=== PATIENT | female | born 1955 | race American Indian/Alaskan Native ===

== ENCOUNTER 2016-09-07 14:59 | Observation (INO) | payer SELFPAY ==
[2016-09-07 15:00] VITALS: BMI 26.6
[2016-09-07 15:11] VITALS: BP 136/75; PULSE 70; RESP 18; TEMP 98.2; O2SAT 98
--- NOTE | 2016-09-07 15:49 | ED PDOC ---
HPI: Abdomen Time Seen by Provider: 09/07/16 15:28 Chief Complaint (Nursing): Abdominal Pain Chief Complaint (Provider): abdominal pain History Per: Patient History/Exam Limitations: no limitations Onset/Duration Of Symptoms: Hrs (overnight ) Outside of [place] travel?: No Current Symptoms Are (Timing): Still Present Location Of Pain/Discomfort: Diffuse Associated Symptoms: Nausea, Vomiting. denies: Fever, Chills, Diarrhea, Urinary Symptoms Additional Complaint(s): Johanny Yang is a 60 year old female, with no previous medical history, who presents to the ED with complaints on constant abdominal pain which started overnight. Pt reports associated symptoms of nausea with multiple episodes of vomiting and the inability to pass gas. Pt denies any fevers, chills, urinary symptoms or diarrhea. Pt reports to experiencing intermittent episodes of abdominal pain for the past few months which she ignored. Pt states to taking estrogen for postmenstrual issues. PMD: none provided Abnormal Vaginal Bleeding: No Past Medical History Reviewed: Historical Data, Nursing Documentation, Vital Signs Vital Signs: Last Vital Signs Temp 98.2 F 09/07/16 15:08 Pulse 70 09/07/16 15:08 Resp 18 09/07/16 15:08 BP 136/75 09/07/16 15:08 Pulse Ox 98 09/08/16 11:08 - Medical History PMH: Denies: HIV, Chronic Kidney Disease - Family History Family History: States: Unknown Family Hx, CAD - Immunization History Hx Tetanus Toxoid Vaccination: (UTD) - Home Medications Home Medications: Ambulatory Orders Medication Instructions Recorded Dicyclomine [Bentyl] 20 mg PO Q6 PRN #12 tab 09/07/16 Famotidine [Pepcid] 40 mg PO DAILY #10 tab 09/07/16 Ondansetron [Zofran] 4 mg PO Q8H #8 tab 09/07/16 - Allergies Allergies/Adverse Reactions: Allergies Allergy/AdvReac Type Severity Reaction Status Date / Time morphine AdvReac ITCHING Verified 09/07/16 15:08 Review of Systems ROS Statement: Except As Marked, All Systems Reviewed And Found Negative Constitutional: Negative for: Fever, Chills Gastrointestinal: Positive for: Nausea, Vomiting, Abdominal Pain. Negative for : Diarrhea Physical Exam - Reviewed Nursing Documentation Reviewed: Yes Vital Signs Reviewed: Yes - Physical Exam Appears: Positive for: Non-toxic, In Acute Distress (moderate painful) Head Exam: Positive for: ATRAUMATIC, NORMAL INSPECTION, NORMOCEPHALIC Skin: Positive for: Normal Color, Warm, DRY Eye Exam: Positive for: EOMI, Normal appearance, PERRL ENT: Positive for: Normal ENT Inspection Neck: Positive for: Normal, Painless ROM Cardiovascular/Chest: Positive for: Regular Rate, Rhythm Respiratory: Positive for: CNT, Normal Breath Sounds Pulses-Dorsalis Pedis (L): 2+ Pulses-Dorsalis Pedis (R): 2+ Gastrointestinal/Abdominal: Positive for: Bowel Sounds, Soft, Tenderness, Hernia (small in the umbillical area that is reducible- she notes been there for several years after hysterecomty surgery ) Back: Positive for: Normal Inspection. Negative for: L CVA Tenderness, R CVA Tenderness Extremity: Positive for: Normal ROM, Capillary Refill (normal ). Negative for: Tenderness Neurologic/Psych: Positive for: Alert, Oriented, Gait (normal ). Negative for: Motor/Sensory Deficits - Laboratory Results Result Diagrams: 09/07/16 16:18 09/07/16 16:18 - ECG ECG: Positive for: Interpreted By Me, Viewed By Me ECG Rhythm: Positive for: Normal QRS, Normal ST Segment, Sinus Bradycardia (53) . Negative for: ST/T Changes O2 Sat by Pulse Oximetry: 98 (RA) Pulse Ox Interpretation: Normal - Radiology X-Ray: Read By Radiologist (No active pulmonary disease.) X-Ray Interpretation: No Acute Disease Medical Decision Making Medical Decision Making: Initial Impression: Abdominal pain R/o intra abdominal pathology, appendicitis, obstruction, diverticulitis Initial Plan: * CT abd Pelvi w/ PO & IV contrast * EKG * amylase * labs * lact acid * lipase * troponin I * CXR * IV NS 500 ml at 1,000 ml/hr * IV NS 1,000 ml at 500 ml/hr * pepcid * toradol * zofran * urinalysis * reevaluation Scribe Attestation: Documented by Nancy Silva, acting as a scribe for Manolo Perez PA-C. Provider Scribe Attestation: All medical record entries made by the Scribe were at my direction and personally dictated by me. I have reviewed the chart and agree that the record accurately reflects my personal performance of the history, physical exam, medical decision making, and the department course for this patient. I have also personally directed, reviewed, and agree with the discharge instructions and disposition. EXAM: CT Abdomen and Pelvis With Intravenous Contrast. CLINICAL HISTORY:60 years old, female; Pain; Abdominal pain; Generalized Coronal and sagittal reformatted images were created and reviewed. CONTRAST: 90 mL of administered intravenously. EXAM DATE/TIME: 09/07/2016 3:52 PM COMPARISON: There are no prior studies for comparison. FINDINGS: Lower thorax: Heart size is normal. There is a small hiatal hernia. There is minimal atelectasis and scarring at the lung bases ABDOMEN: Liver: There is fatty infiltration of the liver. Gallbladder and bile ducts: unremarkable Pancreas: unremarkable Spleen: unremarkable Adrenals: unremarkable Kidneys and ureters: There is a left renal cyst. There is a low attenuation right renal lesion too small to characterize.Kidneys and ureters are otherwise unremarkable. Stomach and bowel: Stomach is incompletely distended. Rotation is normal. There are mildly dilated loops of small bowel in the left upper quadrant. Perihilar distended air-filled loops in the pelvis. There is no obstruction. Terminal ileum is unremarkable.Appendix is unremarkable. Colon is incompletely distended which limits evaluation. There is minimal diverticulosis Appendix: See stomach and bowel PELVIS: Bladder: unremarkable Reproductive: Uterus is absent. There are no adnexal masses. ABDOMEN and PELVIS: Intraperitoneal space: There is no significant fluid.There is no free air. Bones/joints: There are no acute osseous abnormalities Soft tissues: There is a fat-containing right paraumbilical ventral hernia. Vasculature: Vascular structures are unremarkable. Lymph nodes: There is no pathologic adenopathy. IMPRESSION: No acute solid visceral abnormality; no bowel obstruction; no CT findings of appendicitis or diverticulitis; hysterectomy Additional findings as described above. Thank you for allowing us to participate in the care of your patient. Dictated and Authenticated by: Faith Goodwin MD 09/07/2016 7:58 PM Eastern Time ([place] & [place]) CT as above. Labs reviewed with no acute finding. she has no further pain or nausea and feels better she tolerated PO no abdominal tenderness given normal labs, benign abdomen and no acute CT finding will discharge with GI medications return and follow up information discussed at length she will follow up with pMD without fail. Disposition - Clinical Impression Clinical Impression: Abdominal pain, Vomiting alone - Patient ED Disposition Is Patient to be Admitted: No Counseled Patient/Family Regarding: Studies Performed, Diagnosis, Need For Followup, Rx Given - Disposition Disposition: Routine/Home Disposition Time: 20:28 Condition: IMPROVED
[2016-09-07] MEDS ORDERED: Sodium Chloride 0.9% 500 ML IV STA (15:53)
[2016-09-07] MEDS ORDERED: Iohexol 240 (50 ml) ONE (16:11)
[2016-09-07] MEDS ORDERED: Iohexol 240 (50 ml) PO ONE (16:15)
[2016-09-07] MEDS ORDERED: Sodium Chloride 0.9% 1,000 ML IV STA (16:16)
[2016-09-07 16:33] LABS: BASO % 0.5 % (0.0-2.0); EOS # 0.1 K/uL (0.0-0.7); EOS % 1.4 % (0.0-4.0); HEMATOCRIT 38.4 % (34.0-47.0); LYMPH # 1.4 K/uL (1.0-4.3); MEAN CELL VOLUME 85.2 fl (81.0-99.0); MEAN CORPUSCULAR HEMOGLOBIN 27.7 pg (27.0-31.0); MEAN CORPUSCULAR HGB CONC 32.6 g/dL (33.0-37.0); MEAN PLATELET VOLUME 9.6 fl (7.2-11.7); MONO # 0.3 K/uL (0.0-0.8); MONO % 7.2 % (0.0-10.0); NEUT # 2.6 K/uL (1.8-7.0); NEUT % 58.9 % (50.0-75.0); RED CELL DISTRIBUTION WIDTH 14.6 % (11.5-14.5); URINE BACTERIA RARE (<OCC); URINE BILIRUBIN NEGATIVE (NEGATIVE); URINE BLOOD NEGATIVE (NEGATIVE); URINE COLOR YELLOW (YELLOW); URINE GLUCOSE (UA) NEG (Normal); URINE KETONE NEGATIVE (NEGATIVE); URINE LEUKOCYTE ESTERASE SMALL Leu/uL (Negative); URINE PROTEIN NEGATIVE (NEGATIVE); URINE UROBILINOGEN 0.2-1.0 mg/dL (0.2-1.0); WBC URINE < 1 /hpf (0-5); WHITE BLOOD COUNT 4.5 K/uL (4.8-10.8)
[2016-09-07 16:36] LABS: ALKALINE PHOSPHATASE 79 U/L (38-126); ALT/SGPT 27 U/L (9-52); AMYLASE 92 U/L (30-110); AST/SGOT 27 U/L (14-36); BILIRUBIN,TOTAL 0.3 mg/dl (0.2-1.3); BLOOD UREA NITROGEN 13 mg/dl (7-17); CALCIUM 9.1 mg/dL (8.4-10.2); CARBON DIOXIDE 28 mmol/L (22-30); CHLORIDE 106 mmol/L (98-107); GFR AFRICAN-AMERICAN > 60; GLUCOSE,RANDOM 108 mg/dL (65-105); LIPASE 112 U/L (23-300); SODIUM 140 mmol/l (132-148); TOTAL PROTEIN 7.3 G/DL (6.3-8.2)
--- NOTE | 2016-09-07 17:12 | RAD ---
HISTORY: Abdominal pain COMPARISON: 04/12/2016 TECHNIQUE: Chest PA and lateral FINDINGS: LUNGS: The lungs are well inflated and clear. PLEURA: No significant pleural effusion identified. No pneumothorax apparent. CARDIOVASCULAR: Normal. OSSEOUS STRUCTURES: No significant abnormalities. VISUALIZED UPPER ABDOMEN: Normal. OTHER FINDINGS: None. IMPRESSION: No active pulmonary disease.
[2016-09-07] MEDS ORDERED: Sodium Chloride 0.9% 50 ML IV ONE (19:08)
[2016-09-07] MEDS ORDERED: Iohexol 300 100 ML IJ ONE (19:08)
--- NOTE | 2016-09-07 19:58 | CT ---
EXAM: CT Abdomen and Pelvis With Intravenous Contrast. CLINICAL HISTORY: 60 years old, female; Pain; Abdominal pain; Generalized TECHNIQUE: Axial computed tomography images of the abdomen and pelvis with intravenous contrast. This CT exam was performed using one or more of the following dose reduction techniques: automated exposure control, adjustment of the mA and/or kV according to patient size, and/or use of iterative reconstruction technique. Coronal and sagittal reformatted images were created and reviewed. CONTRAST: 90 mL of [id number] administered intravenously. EXAM DATE/TIME: 09/07/2016 3:52 PM COMPARISON: There are no prior studies for comparison. FINDINGS: Lower thorax: Heart size is normal. There is a small hiatal hernia. There is minimal atelectasis and scarring at the lung bases ABDOMEN: Liver: There is fatty infiltration of the liver. Gallbladder and bile ducts: unremarkable Pancreas: unremarkable Spleen: unremarkable Adrenals: unremarkable Kidneys and ureters: There is a left renal cyst. There is a low attenuation right renal lesion too small to characterize.Kidneys and ureters are otherwise unremarkable. Stomach and bowel: Stomach is incompletely distended. Rotation is normal. There are mildly dilated loops of small bowel in the left upper quadrant. Perihilar distended air-filled loops in the pelvis. There is no obstruction. Terminal ileum is unremarkable.Appendix is unremarkable. Colon is incompletely distended which limits evaluation. There is minimal diverticulosis Appendix: See stomach and bowel PELVIS: Bladder: unremarkable Reproductive: Uterus is absent. There are no adnexal masses. ABDOMEN and PELVIS: Intraperitoneal space: There is no significant fluid.There is no free air. Bones/joints: There are no acute osseous abnormalities Soft tissues: There is a fat-containing right paraumbilical ventral hernia. Vasculature: Vascular structures are unremarkable. Lymph nodes: There is no pathologic adenopathy. IMPRESSION: No acute solid visceral abnormality; no bowel obstruction; no CT findings of appendicitis or diverticulitis; hysterectomy Additional findings as described above.
--- NOTE | 2016-09-08 08:00 | CARD ---
APPROVED REPORT EKG Measurement Heart [id number] <Conclusion> Sinus bradycardia Otherwise normal ECG
== END 2016-09-07 20:23 | disposition home or self-care (01) ==
LOC: H.ER 14:59 → H.EROBSV 15:55
PROVIDERS: ADMIT Emergency Medicine; ATTEND Emergency Medicine
DX: R10.84 Generalized abdominal pain (principal); R11.11 Vomiting without nausea; Z88.5 Allergy status to narcotic agent
CPT/HCPCS: 36415; 71020; 74177; 80053; 81003; 82150; 83605; 83690; 84484; 85025; 93005; 96374; 96375; 99283; G0378; J1885; J2405; J7040; Q9966; Q9967

== ENCOUNTER 2017-01-24 11:59 | Observation (INO) | payer OTHER ==
[2017-01-24 12:08] VITALS: BMI 25.8
[2017-01-24] MEDS ORDERED: Sodium Chloride 0.9% 500 ML IV STA (12:33)
--- NOTE | 2017-01-24 12:38 | ED PDOC ---
HPI: Chest Pain Time Seen by Provider: 01/24/17 12:21 Chief Complaint (Nursing): Chest Pain Chief Complaint (Provider): Chest pain History Per: Patient History/Exam Limitations: no limitations Onset/Duration Of Symptoms: Days (Today) Current Symptoms Are (Timing): Still Present Additional Complaint(s): Pt. woke up today and had chest pressure on the right. Dyspnea along with it. [place] something was sitting on her chest. No numbness, tingles, weakness, headaches, calf pain, fever. No cough. No back pain. Same in October and admitted. Past Medical History Reviewed: Nursing Documentation, Vital Signs Vital Signs: Last Vital Signs Temp 97.8 F 01/24/17 12:04 Pulse 68 01/24/17 12:35 Resp 18 01/24/17 12:04 BP 108/55 L 01/24/17 12:35 Pulse Ox 98 01/24/17 14:38 - Medical History PMH: No Chronic Diseases Denies: HIV, Chronic Kidney Disease - Surgical History Other surgeries: hysterectomy - Family History Family History: States: Unknown Family Hx, CAD - Social History Current smoker - smoking cessation education provided: No Alcohol: None Drugs: Denies - Immunization History Hx Tetanus Toxoid Vaccination: (UTD) - Home Medications Home Medications: Ambulatory Orders Medication Instructions Recorded Aspirin [Aspirin Chewable] 81 mg PO DAILY #30 10/19/16 Atenolol [Tenormin] 25 mg PO DAILY #30 tab 10/19/16 Atorvastatin [Lipitor] 20 mg PO HS #30 tab 10/19/16 - Allergies Allergies/Adverse Reactions: Allergies Allergy/AdvReac Type Severity Reaction Status Date / Time morphine AdvReac ITCHING Verified 01/24/17 12:39 Review of Systems ROS Statement: Except As Marked, All Systems Reviewed And Found Negative Cardiovascular: Positive for: Chest Pain Respiratory: Positive for: Shortness of Breath Physical Exam - Reviewed Nursing Documentation Reviewed: Yes Vital Signs Reviewed: Yes - Physical Exam Appears: Positive for: Non-toxic, No Acute Distress Head Exam: Positive for: ATRAUMATIC, NORMAL INSPECTION, NORMOCEPHALIC Skin: Positive for: Normal Color, Warm, DRY Eye Exam: Positive for: EOMI, Normal appearance, PERRL ENT: Positive for: Normal ENT Inspection Neck: Positive for: Normal, Painless ROM Cardiovascular/Chest: Positive for: Regular Rate, Rhythm. Negative for: Chest Non Tender (R side), Edema Respiratory: Positive for: CNT, Normal Breath Sounds Gastrointestinal/Abdominal: Positive for: Normal Exam, Bowel Sounds, Soft. Negative for: Tenderness Back: Positive for: Normal Inspection. Negative for: L CVA Tenderness, R CVA Tenderness Extremity: Positive for: Normal ROM. Negative for: Tenderness, Pedal Edema Neurologic/Psych: Positive for: Alert, Oriented - Laboratory Results Result Diagrams: 01/24/17 13:41 01/24/17 13:41 Interpretation Of Abn Labs: no acute - ECG ECG: Positive for: Interpreted By Me, Viewed By Me ECG Rhythm: Positive for: Normal QRS, Normal ST Segment, Sinus Rhythm O2 Sat by Pulse Oximetry: 98 Pulse Ox Interpretation: Normal - Radiology X-Ray: Interpreted by Me, Viewed By Me X-Ray Interpretation: No Acute Disease - Progress ED Course And Treament: 1435: Pt. had pain so toradol given. Pt. then got itchy so benadryl given. 1532: Spoke with Dr. Marie. Will admit tele obs. Chest pain free. Took 2 ASA at home today. Disposition - Clinical Impression Clinical Impression: Chest pain - Patient ED Disposition Is Patient to be Admitted: Yes Counseled Patient/Family Regarding: Studies Performed, Diagnosis - Disposition Disposition Time: 15:00 Condition: FAIR - POA Present On Arrival: None
[2017-01-24 13:58] LABS: BASO % 0.5 % (0.0-2.0); EOS % 1.1 % (0.0-4.0); HEMOGLOBIN 13.4 g/dL (12.0-16.0); LYMPH # 1.1 K/uL (1.0-4.3); MEAN CELL VOLUME 85.3 fl (81.0-99.0); MEAN CORPUSCULAR HEMOGLOBIN 27.6 pg (27.0-31.0); MEAN CORPUSCULAR HGB CONC 32.4 g/dL (33.0-37.0); MEAN PLATELET VOLUME 8.9 fl (7.2-11.7); MONO # 0.3 K/uL (0.0-0.8); MONO % 7.2 % (0.0-10.0); NEUT # 2.8 K/uL (1.8-7.0); NEUT % 65.2 % (50.0-75.0); RBC 4.84 Mil/uL (3.80-5.20); WHITE BLOOD COUNT 4.2 K/uL (4.8-10.8)
[2017-01-24 14:09] LABS: INR 1.2 (0.9-1.2); PARTIAL THROMBOPLASTIN TIME 33.2 Seconds (25.6-37.1); PROTHROMBIN TIME 12.2 Seconds (9.8-13.1)
[2017-01-24] MEDS ORDERED: DiphenhydrAMINE 50 mg/ml Inj IV STA (14:35)
[2017-01-24] MEDS ORDERED: DiphenhydrAMINE 50 mg/ml Inj ONE (14:37)
[2017-01-24 14:59] LABS: BLOOD UREA NITROGEN 19 mg/dl (7-17); GFR AFRICAN-AMERICAN > 60; GFR NON-AFRICAN AMERICAN > 60
[2017-01-24 15:00] LABS: ALBUMIN 3.9 g/dL (3.5-5.0); ALT/SGPT 20 U/L (9-52); AST/SGOT 34 U/L (14-36); B-TYPE NATRIURETIC PEPTIDE 85.5 pg/ml (0-900); CALCIUM 9.2 mg/dL (8.4-10.2)
--- NOTE | 2017-01-24 16:07 | RAD ---
HISTORY: dyspnea COMPARISON: 10/18/2016. FINDINGS: LUNGS: No active pulmonary disease. PLEURA: No significant pleural effusion identified, no pneumothorax apparent. CARDIOVASCULAR: Normal. OSSEOUS STRUCTURES: No significant abnormalities. VISUALIZED UPPER ABDOMEN: Normal. OTHER FINDINGS: None. IMPRESSION: No active disease. No acute/significant interval changes.
--- NOTE | 2017-01-24 17:52 | CP.PCM.HP ---
History of Present Illness - History of Present Illness History of Present Illness: 60 yo female with no significant PMH claimed she started having sharp right sided upper chest pain lasting for about 5 minutes since 8am. The pain was non- radiating and came on and off at least 3 times until she arrived in the ER. The patient was noted to have multiple visits in the ER since 2 yrs ago because of the same complaint. Work ups were all negative for ischemic events. Present on Admission - Present on Admission Any Indicators Present on Admission: No History of DVT/PE: No History of Uncontrolled Diabetes: No Urinary Catheter: No Decubitus Ulcer Present: No Review of Systems - Review of Systems All systems: reviewed and no additional remarkable complaints except (aside from those mentioned above, 12 point system review were negative by me) Past Patient History - Infectious Disease Hx of Infectious Diseases: None - Tetanus Immunizations Tetanus Immunization: Unknown - Past Medical History & Family History Past Medical History?: Yes - Past Social History Smoking Status: Never Smoked Alcohol: None Drugs: Denies - CARDIAC Hx Cardiac Disorders: Yes - PULMONARY Hx Respiratory Disorders: No - NEUROLOGICAL Hx Neurological Disorder: No - HEENT Hx HEENT Problems: No - RENAL Hx Chronic Kidney Disease: No - ENDOCRINE/METABOLIC Hx Endocrine Disorders: No - HEMATOLOGICAL/ONCOLOGICAL Hx Blood Disorders: No - INTEGUMENTARY Hx Dermatological Problems: No - MUSCULOSKELETAL/RHEUMATOLOGICAL Hx Musculoskeletal Disorders: No - GASTROINTESTINAL Hx Gastrointestinal Disorders: No - GENITOURINARY/GYNECOLOGICAL Hx Genitourinary Disorders: No - PSYCHIATRIC Hx Psychophysiologic Disorder: No - SURGICAL HISTORY Hx Surgeries: Yes Hx Hysterectomy: Yes (secondary to uterine prolapse) - ANESTHESIA Hx Anesthesia: Yes Hx Anesthesia Reactions: No Hx Malignant Hyperthermia: No Meds Allergies/Adverse Reactions: Allergies Allergy/AdvReac Type Severity Reaction Status Date / Time ketorolac [From Toradol] AdvReac ITCHING Verified 01/24/17 16:36 morphine AdvReac ITCHING Verified 01/24/17 12:39 Physical Exam - Constitutional Appears: No Acute Distress - Head Exam Head Exam: ATRAUMATIC - Eye Exam Eye Exam: absent: Scleral icterus - ENT Exam ENT Exam: Mucous Membranes Moist - Neck Exam Neck exam: Negative for: Meningismus - Respiratory Exam Respiratory Exam: Chest Wall Tenderness (tenderness on palpation on right chest ). absent: Rhonchi, Wheezes, Respiratory Distress - Cardiovascular Exam Cardiovascular Exam: REGULAR RHYTHM, +S1, +S2 - GI/Abdominal Exam GI & Abdominal Exam: Soft. absent: Tenderness - Rectal Exam Rectal Exam: Deferred - Extremities Exam Extremities exam: Negative for: pedal edema - Back Exam Back exam: absent: tenderness - Neurological Exam Neurological exam: Alert, Oriented x3 - Psychiatric Exam Psychiatric exam: Normal Affect - Skin Skin Exam: Dry, Intact Results - Vital Signs Recent Vital Signs: Last Vital Signs Temp 98.1 F 01/24/17 17:24 Pulse 54 L 01/24/17 17:24 Resp 20 01/24/17 17:24 BP 118/69 01/24/17 17:24 Pulse Ox 98 01/24/17 17:24 - Labs Result Diagrams: 01/24/17 13:41 01/24/17 13:41 Assessment & Plan (1) Chest pain Status: Acute Comment: place on observation in telemetry. serial Troponin and EKG. NTG SL prn for chest pain. Morphine 2mg IV q 4hrs prn for chest pain not relieved with NTG
[2017-01-24 23:51] VITALS: RESP 18
[2017-01-25 06:37] LABS: HDL CHOLESTEROL 82 MG/DL (30-70)
[2017-01-25 06:48] LABS: LDL CHOLESTEROL 37 mg/dL (0-129)
[2017-01-25 08:07] VITALS: BP 110/68; TEMP 98.1; O2SAT 100
--- NOTE | 2017-01-25 08:36 | CP.PCM.DIS ---
Provider - Provider Date of Admission: 01/24/17 15:31 Attending physician: Len Marie MD Time Spent in preparation of Discharge (in minutes): 25 Diagnosis - Discharge Diagnosis (1) Atypical chest pain Status: Acute Hospital Course - Lab Results Lab Results: Most Recent Lab Values WBC 4.2 K/uL (4.8-10.8) L 01/24/17 13:41 RBC 4.84 Mil/uL (3.80-5.20) 01/24/17 13:41 Hgb 13.4 g/dL (12.0-16.0) 01/24/17 13:41 Hct 41.3 % (34.0-47.0) 01/24/17 13:41 MCV 85.3 fl (81.0-99.0) 01/24/17 13:41 MCH 27.6 pg (27.0-31.0) 01/24/17 13:41 MCHC 32.4 g/dL (33.0-37.0) L 01/24/17 13:41 RDW 15.0 % (11.5-14.5) H 01/24/17 13:41 Plt Count 141 K/uL (130-400) 01/24/17 13:41 MPV 8.9 fl (7.2-11.7) 01/24/17 13:41 Neut % (Auto) 65.2 % (50.0-75.0) 01/24/17 13:41 Lymph % (Auto) 26.0 % (20.0-40.0) 01/24/17 13:41 [place] % (Auto) 7.2 % (0.0-10.0) 01/24/17 13:41 Eos % (Auto) 1.1 % (0.0-4.0) 01/24/17 13:41 Baso % (Auto) 0.5 % (0.0-2.0) 01/24/17 13:41 Neut # 2.8 K/uL (1.8-7.0) 01/24/17 13:41 Lymph # 1.1 K/uL (1.0-4.3) 01/24/17 13:41 [place] # 0.3 K/uL (0.0-0.8) 01/24/17 13:41 Eos # 0.0 K/uL (0.0-0.7) 01/24/17 13:41 Baso # 0.0 K/uL (0.0-0.2) 01/24/17 13:41 PT 12.2 Seconds (9.8-13.1) 01/24/17 13:41 INR 1.2 (0.9-1.2) 01/24/17 13:41 APTT 33.2 Seconds (25.6-37.1) 01/24/17 13:41 Sodium 141 mmol/l (132-148) 01/24/17 13:41 Potassium 4.9 MMOL/L (3.6-5.0) 01/24/17 13:41 Chloride 109 mmol/L (98-107) H 01/24/17 13:41 Carbon Dioxide 25 mmol/L (22-30) 01/24/17 13:41 Anion Gap 12 (10-20) 01/24/17 13:41 BUN 19 mg/dl (7-17) H 01/24/17 13:41 Creatinine 0.7 mg/dL (0.7-1.2) 01/24/17 13:41 Est GFR ( Amer) > 60 01/24/17 13:41 Est GFR (Non-Af Amer) > 60 01/24/17 13:41 Random Glucose 88 mg/dL (65-105) 01/24/17 13:41 Calcium 9.2 mg/dL (8.4-10.2) 01/24/17 13:41 Total Bilirubin 0.8 mg/dl (0.2-1.3) 01/24/17 13:41 AST 34 U/L (14-36) 01/24/17 13:41 ALT 20 U/L (9-52) 01/24/17 13:41 Alkaline Phosphatase 84 U/L (38-126) 01/24/17 13:41 Troponin I < 0.0120 ng/mL (0.00-0.120) 01/25/17 05:20 NT-Pro-B Natriuret Pep 85.5 pg/ml (0-900) 01/24/17 13:41 Total Protein 7.9 G/DL (6.3-8.2) 01/24/17 13:41 Albumin 3.9 g/dL (3.5-5.0) 01/24/17 13:41 Globulin 4.0 gm/dL (2.2-3.9) H 01/24/17 13:41 Albumin/Globulin Ratio 1.0 (1.0-2.1) 01/24/17 13:41 Triglycerides 32 mg/DL (0-149) 01/25/17 05:20 Cholesterol 151 mg/dL (0-199) 01/25/17 05:20 LDL Cholesterol Direct 37 mg/dL (0-129) 01/25/17 05:20 HDL Cholesterol 82 MG/DL (30-70) H 01/25/17 05:20 - Hospital Course Hospital Course: 61 y/o lady, no significant PMH , came in bec of chest pain. Pain reproducible. he work involves heavy lifting. Denies any other symptoms, no SOB, no cough. She was observed in Telemetry. Started on ASA, NTG. EKG done : no significant ST T change. Troponin x 3 negative. Her Chest pain resolved. No abnormal rhythm on Telemetry. 1. Chest Pain, atypical likely Musculoskeletal Pain, ACS ruled out - appt [facility] clinic for further cardiac work up as outpt. Discharge Exam - Head Exam Head Exam: ATRAUMATIC, NORMAL INSPECTION, NORMOCEPHALIC - Eye Exam Eye Exam: EOMI, Normal appearance Pupil Exam: NORMAL ACCOMODATION - ENT Exam ENT Exam: Mucous Membranes Moist, Normal External Ear Exam - Neck Exam Neck exam: Full Rom - Respiratory Exam Respiratory Exam: NORMAL BREATHING PATTERN. absent: Respiratory Distress - Cardiovascular Exam Cardiovascular Exam: REGULAR RHYTHM, +S1, +S2 - GI/Abdominal Exam GI & Abdominal Exam: Normal Bowel Sounds, Soft. absent: Tenderness - Extremities Exam Extremities exam: full ROM, normal capillary refill, pedal pulses present - Back Exam Back exam: FULL ROM. absent: CVA tenderness (L), CVA tenderness (R) - Neurological Exam Neurological exam: Alert, CN II-XII Intact, Normal Gait, Oriented x3, Reflexes Normal - Psychiatric Exam Psychiatric exam: Normal Affect, Normal Mood - Skin Skin Exam: Dry, Normal Color, Warm Discharge Plan - Discharge Medications Prescriptions: Aspirin [Adult Low Dose Aspirin EC] 81 mg PO DAILY #1 tablet. - Follow Up Plan Condition: GOOD Disposition: HOME/ ROUTINE Instructions: Chest Pain (DC) Additional Instructions: Please follow up with supplies packer Dr. [facility]- 2 weeks for further work up. Telephone number [phone]. If you experiences chest pain not relived by rest please go to the nearest emergency room
[2017-01-25 09:16] VITALS: PULSE 51
--- NOTE | 2017-01-26 07:48 | CARD ---
APPROVED REPORT EKG Measurement Heart [id number] SD 118P79 [id number] <Conclusion> Normal sinus rhythm Normal ECG
== END 2017-01-25 09:45 | disposition home or self-care (01) ==
LOC: H.ER 11:59 → H.ERHOLD 15:31 → H.TEL 17:20
DX: R07.89 Other chest pain (principal); Z88.6 Allergy status to analgesic agent; Z79.82 Long term (current) use of aspirin; N81.4 Uterovaginal prolapse, unspecified

== ENCOUNTER 2017-04-02 13:44 | Emergency (ER) | payer OTHER ==
[2017-04-02 13:44] VITALS: BMI 25.8
--- NOTE | 2017-04-02 14:15 | ED PDOC ---
HPI: Chest Pain Time Seen by Provider: 04/02/17 14:02 Chief Complaint (Nursing): Chest Pain Chief Complaint (Provider): Chest Pain History Per: Patient History/Exam Limitations: no limitations Onset/Duration Of Symptoms: Intermittent Episodes Current Symptoms Are (Timing): Still Present Quality: Pressure Additional Complaint(s): Johanny is a 61 y/o female who presents to the ED for left-sided chest pain, worsening since 7AM this morning. Pain is described as pressure, as if someone is sitting on her chest. States she attempted to stay seated and rest, but pain worsened. Admits to having similar pain in the past, usually associated with stress. Patient has history of rheumatic fever, and reports her only daily medication is estrogen. PMD: Provider TBD Past Medical History Reviewed: Historical Data, Nursing Documentation, Vital Signs Vital Signs: Last Vital Signs Temp 98 F 04/02/17 13:57 Pulse 60 04/02/17 13:57 Resp 18 04/02/17 13:57 BP 136/76 04/02/17 13:57 Pulse Ox 98 04/02/17 16:48 - Medical History PMH: Denies: Diabetes, HIV, Chronic Kidney Disease Other PMH: Rheumatic fever - Family History Family History: States: CAD - Immunization History Hx Tetanus Toxoid Vaccination: (UTD) - Home Medications Home Medications: Ambulatory Orders Medication Instructions Recorded Estrogen Supplement 1 cap PO DAILY 04/02/17 - Allergies Allergies/Adverse Reactions: Allergies Allergy/AdvReac Type Severity Reaction Status Date / Time ketorolac [From Toradol] AdvReac ITCHING Verified 04/02/17 13:57 morphine AdvReac ITCHING Verified 04/02/17 13:57 Review of Systems ROS Statement: Except As Marked, All Systems Reviewed And Found Negative Cardiovascular: Positive for: Chest Pain Physical Exam - Reviewed Nursing Documentation Reviewed: Yes Vital Signs Reviewed: Yes - Physical Exam Appears: Positive for: Non-toxic, No Acute Distress Head Exam: Positive for: ATRAUMATIC, NORMAL INSPECTION, NORMOCEPHALIC Skin: Positive for: Normal Color, Warm, Dry Eye Exam: Positive for: Normal appearance Neck: Positive for: Normal Cardiovascular/Chest: Positive for: Regular Rate, Rhythm. Negative for: Murmur Respiratory: Positive for: Normal Breath Sounds. Negative for: Respiratory Distress Extremity: Positive for: Normal ROM, Capillary Refill (< 2 sec). Negative for: Pedal Edema, Deformity Neurologic/Psych: Positive for: Alert, Oriented, Other (Tearful on exam) - Laboratory Results Result Diagrams: 04/02/17 14:20 04/02/17 15:10 - ECG O2 Sat by Pulse Oximetry: 98 (RA) Pulse Ox Interpretation: Normal Medical Decision Making Medical Decision Making: Records reviewed, patient was admitted here in January for chest pain, and discharged on daily Aspirin with instruction to follow up with Dr. Neri Coates for further work-up. Time: 14:36 Initial Plan: --EKG --CMP --Troponin I --CBC --PTT --Prothrombin time --Started IV fluids --Chest X-Ray --Pending reevaluation Time: 15:00 --Patient endorsed to Dr. Cummings by me, pending work up and reevaluation Scribe Attestation: Documented by Flavia Hooker, acting as a scribe for Charis Trivedi PA-C Provider Scribe Attestation: All medical record entries made by the Scribe were at my direction and personally dictated by me. I have reviewed the chart and agree that the record accurately reflects my personal performance of the history, physical exam, medical decision making, and the department course for this patient. I have also personally directed, reviewed, and agree with the discharge instructions and disposition. Disposition - Disposition
[2017-04-02] MEDS ORDERED: Sodium Chloride 0.9% 1,000 ML IV STA (14:37)
[2017-04-02 15:10] LABS: HEMATOCRIT 40.9 % (34.0-47.0); MEAN CORPUSCULAR HEMOGLOBIN 27.8 pg (27.0-31.0); MEAN CORPUSCULAR HGB CONC 32.6 g/dL (33.0-37.0); RED CELL DISTRIBUTION WIDTH 14.6 % (11.5-14.5); WHITE BLOOD COUNT 4.2 K/uL (4.8-10.8)
[2017-04-02 15:25] LABS: ALB/GLOB RATIO 1.2 (1.0-2.1); ALKALINE PHOSPHATASE 82 U/L (38-126); ALT/SGPT 28 U/L (9-52); AST/SGOT 24 U/L (14-36); BILIRUBIN,TOTAL 0.8 mg/dl (0.2-1.3); BLOOD UREA NITROGEN 11 mg/dl (7-17); CALCIUM 9.6 mg/dL (8.4-10.2); CARBON DIOXIDE 28 mmol/L (22-30); CHLORIDE 104 mmol/L (98-107); GFR AFRICAN-AMERICAN > 60; GLUCOSE,RANDOM 83 mg/dL (65-105); POTASSIUM 3.7 MMOL/L (3.6-5.0); SODIUM 142 mmol/l (132-148); TOTAL PROTEIN 7.7 G/DL (6.3-8.2)
[2017-04-02 15:33] LABS: PARTIAL THROMBOPLASTIN TIME 34.8 Seconds (25.6-37.1)
--- NOTE | 2017-04-02 15:59 | RAD ---
HISTORY: chest pain, left pressure COMPARISON: Frontal chest radiograph 01/24/2017. TECHNIQUE: Chest PA and lateral FINDINGS: LUNGS: No active pulmonary disease. PLEURA: No significant pleural effusion identified. No pneumothorax apparent. CARDIOVASCULAR: Normal. OSSEOUS STRUCTURES: No significant abnormalities. VISUALIZED UPPER ABDOMEN: Normal. OTHER FINDINGS: None. IMPRESSION: No interval acute cardiopulmonary disease appreciated.
[2017-04-02] MEDS ORDERED: Oxycodone/Acetaminophen 5/325 mg Tab PO ONE (16:33)
--- NOTE | 2017-04-02 16:40 | ED PDOC ---
- Laboratory Results Result Diagrams: 04/02/17 14:20 04/02/17 15:10 - ECG O2 Sat by Pulse Oximetry: 98 (RA) Pulse Ox Interpretation: Normal Medical Decision Making Medical Decision Making: Receiving sign out: Patient signed out to me by Charis Trivedi at 1500 pending labs and re- evaluation. Scribe Attestation: Documented by Viviana Webber acting as a scribe for Sara Cummings MD. Provider Attestation: All medical record entries made by the Scribe were at my direction and personally dictated by me. I have reviewed the chart and agree that the record accurately reflects my personal performance of the history, physical exam, medical decision making, and the department course for this patient. I have also personally directed, reviewed, and agree with the discharge instructions and disposition. Disposition Counseled Patient/Family Regarding: Studies Performed, Diagnosis, Need For Followup - Clinical Impression Clinical Impression: Chest pain on exertion - POA Present On Arrival: None - Disposition Referrals: [facility] [Outside] [facility] [Outside] Glory Tate MD [Staff Provider] - Disposition: Routine/Home Disposition Time: 16:00 Condition: GOOD Additional Instructions: follow up with your primary doctor in 1-2 days return to the ED with any worsening or concerning symptoms Instructions: Chest Pain (ED) Forms: [facility] (Kittitian) Progress Note - Review of Symptoms Events since last encounter: Time: 1510 Labs reviewed and is within normal limits. Troponin negative. Patient re-evaluated and reports she is still in pain; patient allergic to morphine but not percocet. hpwever after getting percocet she got itchy so ordered benadryl. pt denies sob or respiratory distress. Blood pressure and pulse levels borderline so nitro not given. Time: [address] Marie, who will admit the patient for further evaluation. Dr. Tate, cardiology it architecture consultant is also aware of case. Time: 1820 Patient seen and evaluated by six color [employer] operator Dr Tate who states patient is stable for discharge home. pt instructed to follow up outpt. Time: [address] Espinosa and informed of new plan per six color press operator. Dr. Espinosa agrees with plan for discharge home. Patient informed of labs, EKG findings and plan for discharge home. She is agreeable. Instructed to follow up with PCP in 1-2 days and to return to ED if symptoms worsen or new symptoms arise.
[2017-04-02] MEDS ORDERED: Oxycodone/Acetaminophen 5/325 mg Tab ONE (16:57)
[2017-04-02] MEDS ORDERED: DiphenhydrAMINE 50 mg/ml Inj IVP STA (17:09)
[2017-04-02 17:41] VITALS: PULSE 56
--- NOTE | 2017-04-02 18:40 | CP.PCM.HP ---
History of Present Illness - History of Present Illness History of Present Illness: 61 yo female with no significant PMH came in complaining of midsternal constant chest pain since last night not associated with SOB, nausea, vomiting or fever. She was seen and placed on observation for the same problem 2 months ago and was discharged as non-cardiac chest pain. Present on Admission - Present on Admission Any Indicators Present on Admission: No History of DVT/PE: No History of Uncontrolled Diabetes: No Urinary Catheter: No Decubitus Ulcer Present: No Review of Systems - Review of Systems All systems: reviewed and no additional remarkable complaints except (aside from those mentioned above, 12 point system review were negative by me) Past Patient History - Infectious Disease Hx of Infectious Diseases: None - Tetanus Immunizations Tetanus Immunization: Unknown - Past Medical History & Family History Past Family History: Reviewed and not pertinent - Past Social History Smoking Status: Never Smoked Alcohol: None Drugs: Denies - CARDIAC Hx Cardiac Disorders: No - PULMONARY Hx Respiratory Disorders: No - NEUROLOGICAL Hx Neurological Disorder: No - HEENT Hx HEENT Problems: No - RENAL Hx Chronic Kidney Disease: No - ENDOCRINE/METABOLIC Hx Endocrine Disorders: No - HEMATOLOGICAL/ONCOLOGICAL Hx Human Immunodeficiency Virus (HIV): No - INTEGUMENTARY Hx Dermatological Problems: No - MUSCULOSKELETAL/RHEUMATOLOGICAL Hx Musculoskeletal Disorders: No Hx Falls: No - GASTROINTESTINAL Hx Gastrointestinal Disorders: No - GENITOURINARY/GYNECOLOGICAL Hx Genitourinary Disorders: No - PSYCHIATRIC Hx Psychophysiologic Disorder: No Hx Substance Use: No - SURGICAL HISTORY Hx Surgeries: Yes Hx Hysterectomy: Yes (secondary to uterine prolapse) - ANESTHESIA Hx Anesthesia: Yes Hx Anesthesia Reactions: No Hx Malignant Hyperthermia: No Meds Allergies/Adverse Reactions: Allergies Allergy/AdvReac Type Severity Reaction Status Date / Time ketorolac [From Toradol] AdvReac ITCHING Verified 04/02/17 13:57 morphine AdvReac ITCHING Verified 04/02/17 13:57 Physical Exam - Constitutional Appears: No Acute Distress - Head Exam Head Exam: ATRAUMATIC - Eye Exam Eye Exam: absent: Scleral icterus - ENT Exam ENT Exam: Mucous Membranes Moist - Neck Exam Neck exam: Negative for: Meningismus - Respiratory Exam Respiratory Exam: absent: Rhonchi, Wheezes, Respiratory Distress - Cardiovascular Exam Cardiovascular Exam: REGULAR RHYTHM, +S1, +S2 - GI/Abdominal Exam GI & Abdominal Exam: Soft. absent: Tenderness - Rectal Exam Rectal Exam: Deferred - Extremities Exam Extremities exam: Negative for: calf tenderness - Neurological Exam Neurological exam: Alert, Oriented x3 - Psychiatric Exam Psychiatric exam: Normal Affect - Skin Skin Exam: Dry, Intact Results - Vital Signs Recent Vital Signs: Last Vital Signs Temp 97.7 F 04/02/17 17:39 Pulse 56 L 04/02/17 17:39 Resp 18 04/02/17 17:39 BP 116/56 L 04/02/17 17:39 Pulse Ox 98 04/02/17 18:21 - Labs Result Diagrams: 04/02/17 14:20 04/02/17 15:10 Labs: Laboratory Results - last 24 hr 04/02/17 04/02/17 04/02/17 14:20 14:20 15:10 WBC 4.2 L RBC 4.81 Hgb 13.3 Hct 40.9 MCV 85.0 MCH 27.8 MCHC 32.6 L RDW 14.6 H Plt Count 139 PT 11.9 INR 1.1 APTT 34.8 Sodium 142 Potassium 3.7 Chloride 104 Carbon Dioxide 28 Anion Gap 13 BUN 11 Creatinine 1.1 Est GFR ( Amer) > 60 Est GFR (Non-Af Amer) 51 Random Glucose 83 Calcium 9.6 Total Bilirubin 0.8 AST 24 ALT 28 Alkaline Phosphatase 82 Troponin I < 0.0120 Total Protein 7.7 Albumin 4.2 Globulin 3.5 Albumin/Globulin Ratio 1.2 Assessment & Plan (1) Chest pain Status: Acute Comment: serial Troponin and EKG. NTG SL prn for chest pain. Morphine 2mg IV q 4hrs prn for chest pain. ASA 81mg PO daily
[2017-04-02 19:08] VITALS: BP 112/63; RESP 16; TEMP 98.4
--- NOTE | 2017-04-02 20:47 | CP.PCM.CON ---
History of Present Illness - History of Present Illness History of Present Illness: 61 yo female came in complaining of left sided constant chest pain which increases with deep breathing. /, no associated sx. doesnt increase with exertion. described as a tightness over left chest. She was seen and placed on observation for the same problem 2 months ago and was discharged as non- cardiac chest pain. Pt admits to pain over left chest when she pushes or rubs the area. echo from 2 months ago reveals nml ef and nml diastolic function. ekg shows no pr or st changes. Review of Systems - Constitutional Constitutional: As Per HPI. absent: Anorexia, Chills, Daytime Sleepiness, Excessive Sweating, Fatigue, Fever, Frequent Falls, Headache, Increased Appetite , Lethargy, Malaise, Night Sweats, Snoring, Sleep Apnea, Weight Gain, Weight Loss, Weakness, Other - EENT Eyes: As Per HPI. absent: Blind Spots, Blurred Vision, Change in Vision, Decreased Night Vision, Diplopia, Discharge, Dry Eye, Exophthalmos, Floaters, Irritation, Itchy Eyes, Loss of Peripheral Vision, Pain, Photophobia, Requires Corrective Lenses, Sees Flashes, Spots in Vision, Tunnel Vision, Other Visual Disturbances, Loss of Vision, Other Ears: As Per HPI. absent: Decreased Hearing, Ear Discharge, Ear Pain, Tinnitus , Abnormal Hearing, Disequilibrium, Dizziness, Other Nose/Mouth/Throat: As Per HPI. absent: Epistaxis, Nasal Congestion, Nasal Discharge, Nasal Obstruction, Nasal Trauma, Nose Pain, Post Nasal Drip, Sinus Pain, Sinus Pressure, Bleeding Gums, Change in Voice, Dental Pain, Dry Mouth, Dysphagia, Halitosis, Hoarsness, Lip Swelling, Mouth Lesions, Mouth Pain, Odynophagia, Sore Throat, Throat Swelling, Tongue Swelling, Facial Pain, Neck Pain, Neck Mass, Other - Breasts Breasts: As Per HPI. absent: Change in Shape, Mass, Pain, Nipple Discharge, Nipple Inversion, Skin Changes, Swelling, Other - Cardiovascular Cardiovascular: As Per HPI, Chest Pain, Chest Pain at Rest. absent: Acrocyanosis, Chest Pain with Activity, Claudication, Diaphoresis, Dyspnea, Dyspnea on Exertion, Edema, Irregular Heart Rhythm, Pain Radiating to Arm/Neck/ Jaw, Leg Edema, Leg Ulcers, Lightheadedness, Orthopnea, Palpitations, Paroxysmal Nocturnal Dyspnea, Pedal Edema, Radiating Pain, Rapid Heart Rate, Slow Heart Rate, Syncope, Other - Respiratory Respiratory: As Per HPI. absent: Cough, Dyspnea, Hemoptysis, Dyspnea on Exertion, Wheezing, Snoring, Stridor, Pain on Inspiration, Chest Congestion, Excessive Mucous Production, Change in Mucous Color, Pain with Coughing, Other - Gastrointestinal Gastrointestinal: As Per HPI. absent: Abdominal Pain, Belching, Bloating, Change in Bowel Habits, Change in Stool Character, Coffee Ground Emesis, Constipation, Cramping, Diarrhea, Dyspepsia, Dysphagia, Early Satiety, Excessive Flatus, Fecal Incontinence, Heartburn, Hematemesis, Hematochezia, Loose Stools, Melena, Nausea, Odynophagia, Temesmus, Vomiting, Other - Genitourinary Genitourinary: As Per HPI. absent: Change in Urinary Stream, Difficulty Urinating, Dysuria, Flank Pain, Hematuria, Pyuria, Nocturia, Urinary Incontinence, Urinary Frequency, Urinary Hesitance, Urinary Urgency, Voiding Freq/Small Amts, Freq UTI, Hx Renal/Bladder Calculi, Hx /Renal Surgery, Bladder Distension, Other - Menstruation Menstruation: As Per HPI. absent: Amenorrhea, Amenorrhea/ Control, Currently Menstual, Cycle <21 Days, Cycle >35 Days, Cycle Variable, Menses 1-7 Days, Menses >/= 8 Days, Menses Variable, Cycle > 4 Weeks Between, No Menses for 6 Months, Heavy Menses, Light Menses, Normal Menses, Spotting Between Cycles , S/P Hysterectomy, Menopausal, Post Menopausal, Premenarche, Abnormal Vaginal Bleeding, Dysmenorrhea, Other - Musculoskeletal Musculoskeletal: As Per HPI. absent: Abnormal Gait, Arthralgias, Atrophy, Back Pain, Deformity, Joint Swelling, Limited Range of Motion, Loss of Height, Muscle Cramps, Muscle Weakness, Myalgias, Neck Pain, Numbness, Radiating Pain into Limb, Stiffness, Tingling, Other - Integumentary Integumentary: As Per HPI. absent: Acne, Alopecia, Bleeding Lesions, Change in Hair, Change in Nails, Change in Pigmentation, Changing Lesions, Dry Skin, Erythema, Furuncle, Hirsutism, Lesions, New Lesions, Non-Healing Lesions, Photosensitivity, Pruritus, Rash, Skin Pain, Skin Ulcer, Sores, Striae, Swelling , Unusual Bruising, Wounds, Jaundice, Other - Neurological Neurological: As Per HPI. absent: Abnormal Gait, Abnormal Hearing, Abnormal Movements, Abnormal Speech, Behavioral Changes, Burning Sensations, Confusion, Convulsions, Disequilibrium, Dizziness, Numbness, Focal Weakness, Frequent Falls , Headaches, Lack of Coordination, Loss of Vision, Memory Loss, Paresthesias, Radicular Pain, Restless Legs, Sensory Deficit, Syncope, Tingling, Tremor, Vertigo, Weakness, Other Visual Disturbances, Other - Psychiatric Psychiatric: As Per HPI. absent: Abnormal Sleep Pattern, Anhedonia, Anxiety, Auditory Hallucinations, Behavioral Changes, Change in Appetite, Change in Libido, Confusion, Depression, Difficulty Concentrating, Hallucinations, Homicidal Ideation, Hopelessness, Irritability, Memory Loss, Mood Swings, Panic Attacks, Paranoia, Suicidal Ideation, Visual Hallucinations, Tactile Hallucinations, Other - Endocrine Endocrine: As Per HPI. absent: Change in Body Appearance, Change in Libido, Cold Intolorance, Deepening of Voice, Excessive Sweating, Fatigue, Flushing, Heat Intolorance, Increase in Ring/Shoe/Hat Size, Palpitations, Polydipsia, Polyphagia, Polyuria, Other Past Patient History - Infectious Disease Hx of Infectious Diseases: None - Tetanus Immunizations Tetanus Immunization: Unknown - Past Medical History & Family History Past Family History: Reviewed and not pertinent - Past Social History Smoking Status: Never Smoked Alcohol: None Drugs: Denies - CARDIAC Hx Cardiac Disorders: No - PULMONARY Hx Respiratory Disorders: No - NEUROLOGICAL Hx Neurological Disorder: No - HEENT Hx HEENT Problems: No - RENAL Hx Chronic Kidney Disease: No - ENDOCRINE/METABOLIC Hx Endocrine Disorders: No - HEMATOLOGICAL/ONCOLOGICAL Hx Human Immunodeficiency Virus (HIV): No - INTEGUMENTARY Hx Dermatological Problems: No - MUSCULOSKELETAL/RHEUMATOLOGICAL Hx Musculoskeletal Disorders: No Hx Falls: No - GASTROINTESTINAL Hx Gastrointestinal Disorders: No - GENITOURINARY/GYNECOLOGICAL Hx Genitourinary Disorders: No - PSYCHIATRIC Hx Psychophysiologic Disorder: No Hx Substance Use: No - SURGICAL HISTORY Hx Surgeries: Yes Hx Hysterectomy: Yes (secondary to uterine prolapse) - ANESTHESIA Hx Anesthesia: Yes Hx Anesthesia Reactions: No Hx Malignant Hyperthermia: No Meds Allergies/Adverse Reactions: Allergies Allergy/AdvReac Type Severity Reaction Status Date / Time ketorolac [From Toradol] AdvReac ITCHING Verified 04/02/17 13:57 morphine AdvReac ITCHING Verified 04/02/17 13:57 Physical Exam - Constitutional Appears: Well - Head Exam Head Exam: ATRAUMATIC, NORMAL INSPECTION, NORMOCEPHALIC - Eye Exam Eye Exam: EOMI, Normal appearance, PERRL Pupil Exam: NORMAL ACCOMODATION, PERRL - ENT Exam ENT Exam: Mucous Membranes Moist, Normal Exam - Neck Exam Neck exam: Positive for: Normal Inspection - Respiratory Exam Respiratory Exam: Clear to Auscultation Bilateral, NORMAL BREATHING PATTERN - Cardiovascular Exam Cardiovascular Exam: REGULAR RHYTHM, +S1, +S2. absent: Bradycardia, Tachycardia , Clicks, Diastolic murmur, Gallop, Irregular Rhythm, JVD, RRR, Rubs, +S4, Systolic Murmur - GI/Abdominal Exam GI & Abdominal Exam: Normal Bowel Sounds, Soft. absent: Bruit, Diminished Bowel Sounds, Distended, Firm, Guarding, Hernia, Hyperactive Bowel Sounds, Hypoactive Bowel Sounds, Mass, Organomegaly, Pulsatile Mass, Rebound, Rigid, Tenderness - Rectal Exam Rectal Exam: Deferred - Extremities Exam Extremities exam: Positive for: normal inspection. Negative for: calf tenderness, full ROM, joint swelling, normal capillary refill, pedal edema, tenderness, pedal pulses present - Back Exam Back exam: NORMAL INSPECTION. absent: CVA tenderness (L), CVA tenderness (R), FULL ROM, muscle spasm, paraspinal tenderness, rash noted, tenderness, vertebral tenderness - Neurological Exam Neurological exam: Alert, CN II-XII Intact, Normal Gait, Oriented x3, Reflexes Normal - Psychiatric Exam Psychiatric exam: Normal Affect, Normal Mood - Skin Skin Exam: Dry, Intact, Normal Color, Warm Results - Vital Signs Recent Vital Signs: Last Vital Signs Temp 98.4 F 04/02/17 19:07 Pulse 56 L 04/02/17 19:07 Resp 16 04/02/17 19:07 BP 112/63 04/02/17 19:07 Pulse Ox 99 04/02/17 19:07 - Labs Result Diagrams: 04/02/17 14:20 04/02/17 15:10 Labs: Laboratory Results - last 24 hr 04/02/17 04/02/17 04/02/17 14:20 14:20 15:10 WBC 4.2 L RBC 4.81 Hgb 13.3 Hct 40.9 MCV 85.0 MCH 27.8 MCHC 32.6 L RDW 14.6 H Plt Count 139 PT 11.9 INR 1.1 APTT 34.8 Sodium 142 Potassium 3.7 Chloride 104 Carbon Dioxide 28 Anion Gap 13 BUN 11 Creatinine 1.1 Est GFR ( Amer) > 60 Est GFR (Non-Af Amer) 51 Random Glucose 83 Calcium 9.6 Total Bilirubin 0.8 AST 24 ALT 28 Alkaline Phosphatase 82 Troponin I < 0.0120 Total Protein 7.7 Albumin 4.2 Globulin 3.5 Albumin/Globulin Ratio 1.2 - EKG Data EKG Interpreted by: Myself EKG shows normal: Sinus rhythm Rate: Normal Assessment & Plan (1) Chest pain, non-cardiac Status: Acute (2) Hx of rheumatic fever Status: Acute - Assessment and Plan (Free Text) Plan: PT HAS SIGNIFICANT TENDERNESS OVER LEFT PECTORALIS MUSCLE. ALSO PAIN WHEN USING LEFT UE. PHYSICAL EXAM, EKG, AND PRIOR ECHO NML. PT HAS NO CARDIAC RISK FACTORS. HER PRIOR ECHO REVEALS NO EVIDENCE OF DIASTOLIC DYSFUNCTION THUS ISCHEMIA IS UNLIKELY. PT MAY BE D/C FROM CARDIAC PERSPECTIVE.
[2017-04-02 22:10] VITALS: O2SAT 98
--- NOTE | 2017-04-03 08:27 | CARD ---
APPROVED REPORT EKG Measurement Heart [id number] <Conclusion> Sinus bradycardia Otherwise normal ECG
== END 2017-04-02 19:08 | disposition home or self-care (01) ==
LOC: H.ER 13:44 → UNDOADMOB 16:00 → H.ERHOLD 16:00
DX: R07.89 Other chest pain (principal)
CPT/HCPCS: 71020; 80053; 84484; 85027; 85610; 85730; 93005; 96374; 99282; J1200; J7040

== ENCOUNTER 2017-05-21 22:57 | Observation (INO) | payer BC, OTHER ==
[2017-05-21 22:57] VITALS: BMI 25.8
--- NOTE | 2017-05-21 23:35 | ED PDOC ---
HPI: Chest Pain Time Seen by Provider: 05/21/17 23:09 Chief Complaint (Nursing): Chest Pain Chief Complaint (Provider): Chest pain History Per: Patient History/Exam Limitations: no limitations Onset/Duration Of Symptoms: Hrs (3) Additional Complaint(s): Patient is a 61 y/o female with a past medical history of rheumatic fever presenting to the emergency department for chest pain that started three hours ago. Describes the pain as a constant, sternal pressure that occurred after having dinner. It is currently better now. Further notes being seen in the ED in the past for similar symptoms. Denies that the pain is radiating or exertional, denies shortness of breath, fever, cough, leg swelling, syncope, nausea, vomiting, diaphoresis, or other complaints. PCP: none provided Past Medical History Reviewed: Historical Data, Nursing Documentation, Vital Signs Vital Signs: Last Vital Signs Temp 98.4 F 05/22/17 04:56 Pulse 53 L 05/22/17 04:56 Resp 18 05/22/17 04:56 BP 108/62 05/22/17 04:56 Pulse Ox 98 05/22/17 04:56 - Medical History PMH: Denies: Diabetes, HIV, Chronic Kidney Disease Other PMH: rheumatic fever - Surgical History Surgical History: No Surg Hx - Family History Family History: States: Unknown Family Hx, CAD - Social History Current smoker - smoking cessation education provided: No Ex-Smoker (has not smoked in the last 12 months): No Alcohol: None Drugs: Denies - Immunization History Hx Tetanus Toxoid Vaccination: (UTD) - Home Medications Home Medications: Ambulatory Orders Medication Instructions Recorded Estrogen Supplement 1 cap PO DAILY 04/02/17 - Allergies Allergies/Adverse Reactions: Allergies Allergy/AdvReac Type Severity Reaction Status Date / Time ketorolac [From Toradol] AdvReac ITCHING Verified 04/02/17 13:57 morphine AdvReac ITCHING Verified 04/02/17 13:57 ANTHONY Risk Score for UA/NSTEMI - ANTHONY Risk Score Age > 64: NO 3 or more CAD Risk Factors: NO Known CAD (Stenosis greater than 50%): NO Aspirin use in past 7 days: YES Severe Angina: YES EKG ST changes greater than 0.5mm: NO Positive Cardiac Marker: NO ANTHONY Score: 2 Risk %: 8% Wells Criteria for PE - Wells Criteria for Pulmonary Embolism Clinical Signs and Symptoms of DVT: No P.E is #1 Diagnosis, or Equally Likely: No Heart Rate >100: No Immobilization at least 3 days;Surgery previous 4 weeks: No Previous, objectively diagnosed PE or DVT: No Hemoptysis: No Malignancy w/treatment within 6 months, or palliative: No Total Score: 0 Review of Systems ROS Statement: Except As Marked, All Systems Reviewed And Found Negative Constitutional: Negative for: Fever, Other (diaphoresis) Cardiovascular: Positive for: Chest Pain (constant, sternal pressure, non- radiating and non-exertional) Respiratory: Negative for: Cough, Shortness of Breath Gastrointestinal: Negative for: Nausea, Vomiting, Diarrhea Musculoskeletal: Negative for: Other (leg swelling) Neurological: Negative for: Other (syncope) Physical Exam - Reviewed Nursing Documentation Reviewed: Yes Vital Signs Reviewed: Yes - Physical Exam Appears: Positive for: Well, Non-toxic, No Acute Distress Head Exam: Positive for: ATRAUMATIC, NORMAL INSPECTION, NORMOCEPHALIC Skin: Positive for: Normal Color, Warm, Dry Eye Exam: Positive for: Normal appearance Neck: Positive for: Normal Cardiovascular/Chest: Positive for: Bradycardia. Negative for: Murmur Respiratory: Positive for: Normal Breath Sounds. Negative for: Accessory Muscle Use, Respiratory Distress Gastrointestinal/Abdominal: Positive for: Normal Exam, Soft. Negative for: Tenderness Extremity: Positive for: Normal ROM. Negative for: Pedal Edema, Swelling Neurologic/Psych: Positive for: Alert, Oriented (x3) - Laboratory Results Result Diagrams: 05/21/17 23:30 05/21/17 23:30 - ECG ECG: Positive for: Interpreted By Me, Viewed By Me ECG Rhythm: Positive for: Normal QRS, Sinus Bradycardia. Negative for: ST/T Changes Rate: 59 Medical Decision Making Medical Decision Making: Time: 23:15 Initial impression: Chest pain Differential diagnoses include but are not limited to acute coronary syndrome and GERD Initial plan: EKG BMP Troponin CBC [employer] Professor Reevaluation Scribe Attestation: Documented by Torri Gross, acting as a scribe for Yolis Blanca MD. Provider Scribe Attestation: All medical record entries made by the Scribe were at my direction and personally dictated by me. I have reviewed the chart and agree that the record accurately reflects my personal performance of the history, physical exam, medical decision making, and the department course for this patient. I have also personally directed, reviewed, and agree with the discharge instructions and disposition. Disposition - Clinical Impression Clinical Impression: Chest pain - Patient ED Disposition Is Patient to be Admitted: Yes Discussed With : Cisco Perez Doctor Will See Patient In The: Hospital - Disposition Disposition Time: 02:30 Condition: FAIR - Pt Status Changed To: Hospital Disposition Of: Observation - POA Present On Arrival: None
[2017-05-21 23:40] LABS: BASO # 0.1 K/uL (0.0-0.2); BASO % 1.1 % (0.0-2.0); EOS # 0.1 K/uL (0.0-0.7); EOS % 1.2 % (0.0-4.0); HEMATOCRIT 38.6 % (34.0-47.0); MEAN CELL VOLUME 85.8 fl (81.0-99.0); MEAN CORPUSCULAR HEMOGLOBIN 27.5 pg (27.0-31.0); MEAN PLATELET VOLUME 9.3 fl (7.2-11.7); MONO # 0.5 K/uL (0.0-0.8); MONO % 8.3 % (0.0-10.0); NEUT # 3.1 K/uL (1.8-7.0); NEUT % 54.4 % (50.0-75.0); NRBC % 0.1 % (0.0-0.0); RED CELL DISTRIBUTION WIDTH 15.6 % (11.5-14.5); WHITE BLOOD COUNT 5.7 K/uL (4.8-10.8)
[2017-05-21 23:52] LABS: BLOOD UREA NITROGEN 21 mg/dl (7-17); CALCIUM 8.9 mg/dL (8.4-10.2); CARBON DIOXIDE 27 mmol/L (22-30); CHLORIDE 105 mmol/L (98-107); GFR AFRICAN-AMERICAN > 60; GLUCOSE,RANDOM 84 mg/dL (65-105); POTASSIUM 4.5 MMOL/L (3.6-5.0); SODIUM 141 mmol/l (132-148)
[2017-05-22] MEDS ORDERED: DiphenhydrAMINE 50 mg/ml Inj IV STA (01:22)
[2017-05-22 04:57] VITALS: RESP 18; TEMP 98.4
[2017-05-22 08:14] VITALS: BP 122/77; PULSE 56; O2SAT 97
--- NOTE | 2017-05-22 08:45 | CP.PCM.HP ---
<Chelsea Huston - Last Filed: 05/22/17 08:40> History of Present Illness - History of Present Illness History of Present Illness: 61 y/o female with a past medical history of rheumatic fever presenting to the ED for chest pain that started three hours ago from admission. Describes the pain as a constant, sternal pressure that occurred after having dinner. It is currently better now. Further notes being seen in the ED in the past for similar symptoms. Denies that the pain is radiating or exertional, denies shortness of breath, fever, cough, leg swelling, syncope, nausea, vomiting, diaphoresis, or other complaints. Present on Admission - Present on Admission Any Indicators Present on Admission: No History of DVT/PE: No History of Uncontrolled Diabetes: No Urinary Catheter: No Decubitus Ulcer Present: No Review of Systems - Review of Systems All systems: reviewed and no additional remarkable complaints except (12 point system review were negative) Past Patient History - Infectious Disease Hx of Infectious Diseases: None - Tetanus Immunizations Tetanus Immunization: Unknown - Past Medical History & Family History Past Medical History?: Yes - Past Social History Alcohol: None Drugs: Denies - CARDIAC Hx Cardiac Disorders: No - PULMONARY Hx Respiratory Disorders: No - NEUROLOGICAL Hx Neurological Disorder: No - HEENT Hx HEENT Problems: No - RENAL Hx Chronic Kidney Disease: No - ENDOCRINE/METABOLIC Hx Endocrine Disorders: No - HEMATOLOGICAL/ONCOLOGICAL Hx Human Immunodeficiency Virus (HIV): No - INTEGUMENTARY Hx Dermatological Problems: No - MUSCULOSKELETAL/RHEUMATOLOGICAL Hx Falls: No - GASTROINTESTINAL Hx Gastrointestinal Disorders: No - GENITOURINARY/GYNECOLOGICAL Hx Genitourinary Disorders: No - PSYCHIATRIC Hx Substance Use: No - SURGICAL HISTORY Hx Surgeries: Yes Hx Hysterectomy: Yes (secondary to uterine prolapse) - ANESTHESIA Hx Anesthesia: Yes Hx Anesthesia Reactions: No Hx Malignant Hyperthermia: No Meds Allergies/Adverse Reactions: Allergies Allergy/AdvReac Type Severity Reaction Status Date / Time ketorolac [From Toradol] AdvReac ITCHING Verified 04/02/17 13:57 morphine AdvReac ITCHING Verified 04/02/17 13:57 Physical Exam - Constitutional Appears: No Acute Distress - Eye Exam Eye Exam: Normal appearance - ENT Exam ENT Exam: Mucous Membranes Moist - Respiratory Exam Respiratory Exam: Clear to Auscultation Bilateral, NORMAL BREATHING PATTERN. absent: Rales, Rhonchi, Wheezes, Respiratory Distress - Cardiovascular Exam Cardiovascular Exam: REGULAR RHYTHM, +S1, +S2 - GI/Abdominal Exam GI & Abdominal Exam: Normal Bowel Sounds, Soft. absent: Distended, Guarding, Rigid, Tenderness - Extremities Exam Extremities exam: Positive for: normal inspection. Negative for: calf tenderness, pedal edema - Neurological Exam Neurological exam: Alert, Oriented x3 - Skin Skin Exam: Dry, Intact, Normal Color Results - Vital Signs Recent Vital Signs: Last Vital Signs Temp 98.4 F 05/22/17 08:00 Pulse 56 L 05/22/17 08:00 Resp 18 05/22/17 08:00 BP 122/77 05/22/17 08:00 Pulse Ox 97 05/22/17 08:00 - Labs Result Diagrams: 05/21/17 23:30 05/21/17 23:30 Labs: Laboratory Results - last 24 hr 05/21/17 05/21/17 05/22/17 23:30 23:30 06:00 WBC 5.7 RBC 4.49 Hgb 12.4 Hct 38.6 MCV 85.8 MCH 27.5 MCHC 32.0 L RDW 15.6 H Plt Count 156 MPV 9.3 Neut % (Auto) 54.4 Lymph % (Auto) 35.0 [place] % (Auto) 8.3 Eos % (Auto) 1.2 Baso % (Auto) 1.1 Neut # 3.1 Lymph # 2.0 [place] # 0.5 Eos # 0.1 Baso # 0.1 Sodium 141 Potassium 4.5 Chloride 105 Carbon Dioxide 27 Anion Gap 14 BUN 21 H Creatinine 0.8 Est GFR ( Amer) > 60 Est GFR (Non-Af Amer) > 60 Random Glucose 84 Calcium 8.9 Troponin I < 0.0120 < 0.0120 05/22/17 07:30 WBC RBC Hgb Hct MCV MCH MCHC RDW Plt Count MPV Neut % (Auto) Lymph % (Auto) [place] % (Auto) Eos % (Auto) Baso % (Auto) Neut # Lymph # [place] # Eos # Baso # Sodium Potassium Chloride Carbon Dioxide Anion Gap BUN Creatinine Est GFR ( Amer) Est GFR (Non-Af Amer) Random Glucose Calcium Troponin I < 0.0120 Assessment & Plan (1) Chest pain Status: Acute Comment: Admitted to [facility] to r/o ACS. asymptomatic this morning, most likely not from Cardiac etiology. Troponin I x 2 negative. awaiting for 3 troponin. s/p aspirin 325 mg once. EKG on admission did not show acute ST-T wave changes. Cardiology consult appreciated, Dr. Marie (2) DVT prophylaxis Status: Acute Comment: Lovenox 40 mg SC daily - Date & Time Date: 05/22/17 Time: 07:00 <PerezCisco Estuardo - Last Filed: 05/22/17 12:53> Results - Vital Signs Recent Vital Signs: Last Vital Signs Temp 98.4 F 05/22/17 08:00 Pulse 56 L 05/22/17 08:00 Resp 18 05/22/17 08:00 BP 122/77 05/22/17 08:00 Pulse Ox 97 05/22/17 08:00 - Labs Result Diagrams: 05/21/17 23:30 05/21/17 23:30 Labs: Laboratory Results - last 24 hr 05/21/17 05/21/17 05/22/17 23:30 23:30 06:00 WBC 5.7 RBC 4.49 Hgb 12.4 Hct 38.6 MCV 85.8 MCH 27.5 MCHC 32.0 L RDW 15.6 H Plt Count 156 MPV 9.3 Neut % (Auto) 54.4 Lymph % (Auto) 35.0 [place] % (Auto) 8.3 Eos % (Auto) 1.2 Baso % (Auto) 1.1 Neut # 3.1 Lymph # 2.0 [place] # 0.5 Eos # 0.1 Baso # 0.1 Sodium 141 Potassium 4.5 Chloride 105 Carbon Dioxide 27 Anion Gap 14 BUN 21 H Creatinine 0.8 Est GFR ( Amer) > 60 Est GFR (Non-Af Amer) > 60 Random Glucose 84 Calcium 8.9 Troponin I < 0.0120 < 0.0120 05/22/17 07:30 WBC RBC Hgb Hct MCV MCH MCHC RDW Plt Count MPV Neut % (Auto) Lymph % (Auto) [place] % (Auto) Eos % (Auto) Baso % (Auto) Neut # Lymph # [place] # Eos # Baso # Sodium Potassium Chloride Carbon Dioxide Anion Gap BUN Creatinine Est GFR ( Amer) Est GFR (Non-Af Amer) Random Glucose Calcium Troponin I < 0.0120 Assessment & Plan - Assessment and Plan (Free Text) Assessment: Patient was personally seen and examined by me in rounds with residents. Available labs and diagnostic data reviewed. Case, Patient's condition and management plan discussed with residents in rounds. Agree with resident's progress note. Plan: As ordered.
[2017-05-22] MEDS ORDERED: Enoxaparin 40 mg Syringe SC SCH (09:00)
--- NOTE | 2017-05-22 10:50 | CARD ---
APPROVED REPORT EKG Measurement Heart [id number] <Conclusion> Sinus bradycardia Otherwise normal ECG
== END 2017-05-22 08:20 | disposition left against medical advice (07) ==
LOC: H.ER 22:57 → H.ERHOLD 05-22 02:18 → H.TEL 05-22 04:37
PROVIDERS: ADMIT Internal Medicine; ATTEND Internal Medicine
DX: R07.9 Chest pain, unspecified (principal); Z79.82 Long term (current) use of aspirin; Z90.710 Acquired absence of both cervix and uterus; I00 Rheumatic fever without heart involvement
CPT/HCPCS: 36415; 80048; 84484; 85025; 93005; 99285; G0378; J1200; J2405

== ENCOUNTER 2017-06-16 13:52 | Emergency (ER) | payer OTHER ==
[2017-06-16 13:53] VITALS: BMI 25.8
[2017-06-16 14:06] VITALS: BP 109/67; PULSE 79; RESP 16; TEMP 97; O2SAT 99
--- NOTE | 2017-06-16 14:26 | ED PDOC ---
HPI: Back Time Seen by Provider: 06/16/17 14:21 Chief Complaint (Nursing): Back Pain Chief Complaint (Provider): Low back pain, right thigh pain s/p fall History Per: Patient History/Exam Limitations: no limitations Onset/Duration Of Symptoms: Days Current Symptoms Are (Timing): Still Present Full Body Front + Back: 1 - Pain 2 - Pain Quality Of Discomfort: Dull, Other (Sore ) Description Of Injury (Context): Slipped on water in [place] coming in to work Severity: Moderate Pain Scale Rating Of: 7 Previous Symptoms: None Associated Symptoms: None Exacerbating Factor(s): Other Additional Complaint(s): No numbness/tingling. No bladder or bowel incontinence. Past Medical History Reviewed: Historical Data, Nursing Documentation, Vital Signs Vital Signs: Last Vital Signs Temp 97 F L 06/16/17 14:03 Pulse 79 06/16/17 14:03 Resp 16 06/16/17 14:03 BP 109/67 06/16/17 14:03 Pulse Ox 99 06/16/17 14:03 - Medical History PMH: Denies: Diabetes, HIV, Chronic Kidney Disease - Surgical History Surgical History: No Surg Hx - Family History Family History: States: Unknown Family Hx, CAD - Living Arrangements Living Arrangements: With Family - Social History Current smoker - smoking cessation education provided: No Alcohol: None Drugs: Denies - Immunization History Hx Tetanus Toxoid Vaccination: (UTD) - Home Medications Home Medications: Ambulatory Orders Medication Instructions Recorded Estrogen Supplement 1 cap PO DAILY 04/02/17 - Allergies Allergies/Adverse Reactions: Allergies Allergy/AdvReac Type Severity Reaction Status Date / Time ketorolac [From Toradol] AdvReac ITCHING Verified 04/02/17 13:57 morphine AdvReac ITCHING Verified 04/02/17 13:57 Review of Systems ROS Statement: Except As Marked, All Systems Reviewed And Found Negative Constitutional: Negative for: Fever, Chills Musculoskeletal: Positive for: Back Pain Physical Exam - Reviewed Nursing Documentation Reviewed: Yes Vital Signs Reviewed: Yes - Physical Exam Appears: Positive for: Well, Non-toxic, No Acute Distress Head Exam: Positive for: ATRAUMATIC, NORMAL INSPECTION, NORMOCEPHALIC Skin: Positive for: Normal Color, Warm, DRY Eye Exam: Positive for: Normal appearance ENT: Positive for: Normal ENT Inspection Neck: Positive for: Normal, Painless ROM Cardiovascular/Chest: Positive for: Regular Rate, Rhythm Respiratory: Positive for: Normal Breath Sounds. Negative for: Accessory Muscle Use, Respiratory Distress Back: Positive for: Normal Inspection, Vertebral Tenderness (L-spine) Extremity: Positive for: Normal ROM. Negative for: Tenderness, Deformity, Swelling Neurologic/Psych: Positive for: Alert - ECG O2 Sat by Pulse Oximetry: 99 Disposition - Clinical Impression Clinical Impression: Back pain - Patient ED Disposition Is Patient to be Admitted: No Counseled Patient/Family Regarding: Diagnosis, Need For Followup - Disposition Referrals: FAMILY PROVIDER,NO [Primary Care Provider] - Disposition: Routine/Home Disposition Time: 14:42 Condition: GOOD Instructions: Back Pain (ED) Forms: [facility] (Ugandan), [facility] ED School/Work Excuse
--- NOTE | 2017-06-16 14:57 | RAD ---
PROCEDURE: Radiographs of the Lumbar Spine. HISTORY: back pain s/p fall COMPARISON: No prior. FINDINGS: BONES: Normal alignment. No listhesis. No fracture. DISC SPACES: Unremarkable. OTHER FINDINGS: None. IMPRESSION: Unremarkable radiographs of the lumbar spine.
== END 2017-06-16 14:48 | disposition home or self-care (01) ==
LOC: H.ER 13:52
DX: M79.651 Pain in right thigh (principal); W01.0XXA Fall on same level from slipping, tripping and stumbling without subsequent striking against object, initial encounter; Y99.0 Civilian activity done for income or pay; Z88.5 Allergy status to narcotic agent

== ENCOUNTER 2017-08-15 14:05 | Emergency (ER) | payer OTHER ==
[2017-08-15 14:05] VITALS: BMI 25.8
[2017-08-15 14:17] VITALS: BP 129/72; PULSE 58; RESP 16; TEMP 98.1; O2SAT 99
[2017-08-15] MEDS ORDERED: Sodium Chloride 0.9% 1,000 ML IV STA (14:31)
[2017-08-15] MEDS ORDERED: Iohexol 240 (50 ml) PO ONE (14:32)
--- NOTE | 2017-08-15 14:54 | ED PDOC ---
HPI: Abdomen Time Seen by Provider: 08/15/17 14:22 Chief Complaint (Nursing): Chest Pain Chief Complaint (Provider): Abd pain History Per: Patient History/Exam Limitations: no limitations Onset/Duration Of Symptoms: Days (today morning) Additional Complaint(s): Pt. with epigastric pain today. Nausea, vomit, nonbloody. Also, light-headed, weakness, body aches, chills. No chest pain, back pain, dysuria. No new food or drinks. No fever, cough. No dyspnea. No leg pain. No numbness, tingles, headaches. Past Medical History Reviewed: Historical Data, Nursing Documentation, Vital Signs Vital Signs: Last Vital Signs Temp 98.1 F 08/15/17 14:14 Pulse 58 L 08/15/17 14:14 Resp 16 08/15/17 14:14 BP 129/72 08/15/17 14:14 Pulse Ox 99 08/15/17 17:19 - Medical History PMH: CAD Denies: Diabetes, HIV, Chronic Kidney Disease - Surgical History Other surgeries: hysterectomy - Family History Family History: States: Unknown Family Hx, CAD - Social History Current smoker - smoking cessation education provided: No Alcohol: None Drugs: Denies - Immunization History Hx Tetanus Toxoid Vaccination: (UTD) - Home Medications Home Medications: Ambulatory Orders Medication Instructions Recorded Estrogen Supplement 1 cap PO DAILY 04/02/17 Nitrofurantoin Macrocrystals 100 mg PO BID #10 cap 08/15/17 [Macrobid] - Allergies Allergies/Adverse Reactions: Allergies Allergy/AdvReac Type Severity Reaction Status Date / Time ketorolac [From Toradol] AdvReac ITCHING Verified 04/02/17 13:57 morphine AdvReac ITCHING Verified 04/02/17 13:57 Review of Systems ROS Statement: Except As Marked, All Systems Reviewed And Found Negative Constitutional: Positive for: Weakness Cardiovascular: Positive for: Light Headedness Gastrointestinal: Positive for: Nausea, Vomiting, Abdominal Pain. Negative for : Diarrhea Neurological: Positive for: Weakness, Dizziness Physical Exam - Reviewed Nursing Documentation Reviewed: Yes Vital Signs Reviewed: Yes - Physical Exam Appears: Positive for: Non-toxic, No Acute Distress Head Exam: Positive for: ATRAUMATIC, NORMAL INSPECTION, NORMOCEPHALIC Skin: Positive for: Normal Color, Warm, DRY Eye Exam: Positive for: EOMI, Normal appearance, PERRL ENT: Positive for: Normal ENT Inspection Neck: Positive for: Normal, Painless ROM Cardiovascular/Chest: Positive for: Regular Rate, Rhythm Respiratory: Positive for: CNT, Normal Breath Sounds Gastrointestinal/Abdominal: Positive for: Bowel Sounds, Soft, Tenderness ( diffuse) Back: Positive for: Normal Inspection. Negative for: L CVA Tenderness, R CVA Tenderness Extremity: Positive for: Normal ROM. Negative for: Tenderness, Pedal Edema Neurologic/Psych: Positive for: Alert, Oriented - Laboratory Results Result Diagrams: 08/15/17 15:04 08/15/17 15:50 Interpretation Of Abn Labs: no acute Urine dip results: Positive for: Leukocyte Esterase - ECG ECG: Positive for: Interpreted By Me, Viewed By Me ECG Rhythm: Positive for: Normal QRS, Normal ST Segment, Sinus Rhythm O2 Sat by Pulse Oximetry: 99 Pulse Ox Interpretation: Normal - Progress ED Course And Treament: 1703: Stable. AAOx3. Pain free. Tolerated PO. States no more dizziness, weakness, or pain. Refuses CT for further evaluation and treatment. Pt. aware we are unable to identify if any appendix, stomach, or other issues are causing the problem without a catscan. Pt. aware and will return if symptoms come back. Has capacity to make decisions. Disposition - Clinical Impression Clinical Impression: Abdominal pain, UTI (urinary tract infection) - Patient ED Disposition Is Patient to be Admitted: No Counseled Patient/Family Regarding: Studies Performed, Diagnosis, Need For Followup, Rx Given - Disposition Referrals: [facility] [Outside] - 08/16/17 Disposition: Routine/Home Disposition Time: 17:06 Condition: STABLE Additional Instructions: Return if right aware for a catscan. You have chosen not to get one at this time. We are unable to identify if any appendix, stomach, or other issues are causing the problem without a catscan. Prescriptions: Nitrofurantoin Macrocrystals [Macrobid] 100 mg PO BID #10 cap Instructions: Urinary Tract Infection, Adult (DC), Acute Abdomen (Belly Pain), Adult (DC), Nausea and Vomiting, Adult (DC) Forms: [facility] ED School/Work Excuse
--- NOTE | 2017-08-15 14:56 | RAD ---
HISTORY: epigastric pain COMPARISON: 04/02/2017 TECHNIQUE: Chest PA and lateral FINDINGS: LUNGS: No active pulmonary disease. Bilateral hyperaeration as before. PLEURA: No significant pleural effusion identified. No pneumothorax apparent. CARDIOVASCULAR: Normal. OSSEOUS STRUCTURES: Dextroscoliosis as before VISUALIZED UPPER ABDOMEN: Normal. OTHER FINDINGS: None. IMPRESSION: No active disease.
[2017-08-15] MEDS ORDERED: Iohexol 240 (50 ml) ONE (15:19)
[2017-08-15] MEDS ORDERED: DiphenhydrAMINE 50 mg/ml Inj IV STA (15:42)
[2017-08-15] MEDS ORDERED: DiphenhydrAMINE 50 mg/ml Inj ONE (15:43)
[2017-08-15 16:09] LABS: BASO % 0.9 % (0.0-2.0); EOS # 0.1 K/uL (0.0-0.7); EOS % 1.4 % (0.0-4.0); HEMOGLOBIN 12.8 g/dL (12.0-16.0); LYMPH # 1.4 K/uL (1.0-4.3); LYMPH % 33.1 % (20.0-40.0); MEAN CELL VOLUME 85.7 fl (81.0-99.0); MEAN CORPUSCULAR HEMOGLOBIN 28.1 pg (27.0-31.0); MEAN CORPUSCULAR HGB CONC 32.8 g/dL (33.0-37.0); MEAN PLATELET VOLUME 9.5 fl (7.2-11.7); MONO # 0.4 K/uL (0.0-0.8); MONO % 10.2 % (0.0-10.0); NEUT # 2.3 K/uL (1.8-7.0); NEUT % 54.4 % (50.0-75.0); NRBC % 0.2 % (0.0-0.0); RBC 4.57 Mil/uL (3.80-5.20); RED CELL DISTRIBUTION WIDTH 14.9 % (11.5-14.5); WHITE BLOOD COUNT 4.3 K/uL (4.8-10.8)
[2017-08-15 16:13] LABS: CALCIUM 9.2 mg/dL (8.4-10.2); GFR AFRICAN-AMERICAN > 60; GFR NON-AFRICAN AMERICAN > 60; LIPASE 121 U/L (23-300)
[2017-08-15 16:14] LABS: ALT/SGPT 31 U/L (9-52); AST/SGOT 32 U/L (14-36); BLOOD UREA NITROGEN 15 mg/dl (7-17)
--- NOTE | 2017-08-17 18:20 | CARD ---
APPROVED REPORT EKG Measurement Heart [id number] <Conclusion> Normal sinus rhythm Normal ECG
== END 2017-08-15 18:14 | disposition home or self-care (01) ==
LOC: H.ER 14:05
DX: R10.13 Epigastric pain (principal); N39.0 Urinary tract infection, site not specified; I25.10 Atherosclerotic heart disease of native coronary artery without angina pectoris; Z88.5 Allergy status to narcotic agent; Z90.710 Acquired absence of both cervix and uterus
CPT/HCPCS: 71046; 80053; 80320; 83690; 84484; 85025; 93005; 96374; 99283; J1200; J2405; J7040

== ENCOUNTER 2017-09-18 22:24 | Emergency (ER) | payer OTHER ==
[2017-09-18 22:24] VITALS: BMI 25.8
[2017-09-18 22:47] VITALS: RESP 16; TEMP 98.7; O2SAT 97
[2017-09-18] MEDS ORDERED: Sodium Chloride 0.9% 1,000 ML IV STA (23:37)
--- NOTE | 2017-09-18 23:38 | ED PDOC ---
HPI: Chest Pain Time Seen by Provider: 09/18/17 22:25 Chief Complaint (Nursing): Chest Pain Chief Complaint (Provider): Chest Pain and vomiting History Per: Patient History/Exam Limitations: no limitations Onset/Duration Of Symptoms: Days (x 1) Current Symptoms Are (Timing): Still Present Additional Complaint(s): 61 year old female with a history of lead poisoning and rheumatic fever (as a child) presents to the ED with chest pain and several episodes of vomiting that began this evening. Patient reports her daughter is going through some issues and she is stressed about her. She believes that stress and nerves may have caused the symptoms. Patient took Aspirin while at home prior to arrival. Denies fever, shortness of breath and abdominal pain. PMD: Amy Thurston Past Medical History Reviewed: Historical Data, Nursing Documentation, Vital Signs Vital Signs: Last Vital Signs Temp 98.7 F 09/18/17 22:44 Pulse 63 09/19/17 03:41 Resp 16 09/18/17 22:44 BP 151/83 H 09/19/17 03:41 Pulse Ox 97 09/19/17 03:22 - Medical History PMH: CAD Denies: Diabetes, HIV, Chronic Kidney Disease Other PMH: rheumatic fever (as a child), lead posioning - Surgical History Other surgeries: hysterectomy - Family History Family History: States: Unknown Family Hx, CAD - Social History Current smoker - smoking cessation education provided: No Ex-Smoker (has not smoked in the last 12 months): No Alcohol: None Drugs: Denies - Immunization History Hx Tetanus Toxoid Vaccination: (UTD) - Home Medications Home Medications: Ambulatory Orders Medication Instructions Recorded Estrogen Supplement 1 cap PO DAILY 04/02/17 Nitrofurantoin Macrocrystals 100 mg PO BID #10 cap 08/15/17 [Macrobid] - Allergies Allergies/Adverse Reactions: Allergies Allergy/AdvReac Type Severity Reaction Status Date / Time ketorolac [From Toradol] AdvReac ITCHING Verified 04/02/17 13:57 morphine AdvReac ITCHING Verified 04/02/17 13:57 ANTHONY Risk Score for UA/NSTEMI - ANTHONY Risk Score Age > 64: NO 3 or more CAD Risk Factors: NO Known CAD (Stenosis greater than 50%): NO Aspirin use in past 7 days: NO Severe Angina: NO EKG ST changes greater than 0.5mm: NO Positive Cardiac Marker: NO ANTHONY Score: 0 Risk %: 5% Wells Criteria for PE - Wells Criteria for Pulmonary Embolism Clinical Signs and Symptoms of DVT: No P.E is #1 Diagnosis, or Equally Likely: No Heart Rate >100: No Immobilization at least 3 days;Surgery previous 4 weeks: No Previous, objectively diagnosed PE or DVT: No Hemoptysis: No Total Score: 0 Review of Systems ROS Statement: Except As Marked, All Systems Reviewed And Found Negative Constitutional: Negative for: Fever Cardiovascular: Positive for: Chest Pain Respiratory: Negative for: Shortness of Breath Gastrointestinal: Positive for: Vomiting. Negative for: Abdominal Pain Physical Exam - Reviewed Nursing Documentation Reviewed: Yes Vital Signs Reviewed: Yes - Physical Exam Appears: Positive for: Non-toxic, No Acute Distress Head Exam: Positive for: ATRAUMATIC, NORMOCEPHALIC Skin: Positive for: Normal Color, Warm, Dry Eye Exam: Positive for: EOMI, Normal appearance, PERRL Neck: Positive for: Normal, Painless ROM Cardiovascular/Chest: Positive for: Regular Rate, Rhythm. Negative for: Murmur Respiratory: Positive for: Normal Breath Sounds. Negative for: Respiratory Distress Gastrointestinal/Abdominal: Positive for: Normal Exam, Soft Back: Positive for: Normal Inspection. Negative for: L CVA Tenderness, R CVA Tenderness, Vertebral Tenderness Extremity: Positive for: Normal ROM. Negative for: Deformity Neurologic/Psych: Positive for: Alert, Oriented. Negative for: Motor/Sensory Deficits - Laboratory Results Result Diagrams: 09/18/17 23:45 09/18/17 23:45 - ECG ECG: Positive for: Interpreted By Me, Viewed By Tn ECG Rhythm: Positive for: Sinus Rhythm Rate: 75 O2 Sat by Pulse Oximetry: 97 (RA) Pulse Ox Interpretation: Normal Medical Decision Making Medical Decision Making: Time: 22:56 Initial Plan: chest pain, atypical surrounding stressors --CMP --Troponin I --CBC with differentials --PTT --Prothrombin time --Chest x-ray --Zofran ODT 4 mg PO --Normal saline IV 999 mls/hr EKG --Normal sinus rhythm, rate is 75 Labs are negative. Chest x-ray being sent to radiology for reading. 03:17 --repeat Troponin levels are negative Chest x-ray FINDINGS: LUNGS: Lungs are hyperinflated, suggestive of underlying COPD. Lungs appear clear radiographically, without evidence of significant focal consolidation/infiltrate or of diffuse pulmonary vascular congestion. PLEURAL SPACE: No pneumothorax or pleural effusions seen. HEART: Heart does not appear significantly enlarged. MEDIASTINUM: Mediastinal contour is within normal limits. BONES/JOINTS: Bony structures appear demineralized. Mild scoliotic curvature of the spine. VASCULATURE: Calcification of the aortic arch. IMPRESSION: - No radiographic evidence of acute disease in the chest. - See above for multiple non-emergent findings. second troponin negative pt sleeping throughout ER stay Patient requires no further treatment in the ED at this time. Will be discharged home. Follow up with PMD in 1-2 days. Scribe Attestation: Documented by Radha Echols, acting as a scribe for Sara Cummings MD Provider Scribe Attestation: All medical record entries made by the Scribe were at my direction and personally dictated by me. I have reviewed the chart and agree that the record accurately reflects my personal performance of the history, physical exam, medical decision making, and the department course for this patient. I have also personally directed, reviewed, and agree with the discharge instructions and disposition. Disposition - Clinical Impression Clinical Impression: Chest pain, non-cardiac - Patient ED Disposition Is Patient to be Admitted: No Counseled Patient/Family Regarding: Studies Performed, Diagnosis, Need For Followup - Disposition Referrals: Amy Thurston MD [Primary Care Provider] - Disposition: Routine/Home Disposition Time: 00:15 Condition: IMPROVED Additional Instructions: follow up with your primary doctr in 1-2 days return to the ED with any worsening or concerning symptoms Instructions: Costochondritis Forms: [employer] (Korean), [facility] ED School/Work Excuse
[2017-09-18 23:55] LABS: BASO # 0.1 K/uL (0.0-0.2); EOS # 0.1 K/uL (0.0-0.7); HEMOGLOBIN 13.1 g/dL (12.0-16.0); LYMPH # 1.9 K/uL (1.0-4.3); LYMPH % 35.6 % (20.0-40.0); MEAN CELL VOLUME 85.3 fl (81.0-99.0); MEAN CORPUSCULAR HEMOGLOBIN 28.1 pg (27.0-31.0); MEAN PLATELET VOLUME 8.7 fl (7.2-11.7); MONO # 0.5 K/uL (0.0-0.8); MONO % 8.9 % (0.0-10.0); NEUT # 2.9 K/uL (1.8-7.0); NEUT % 53.5 % (50.0-75.0); NRBC % 0.1 % (0.0-0.0); RBC 4.65 Mil/uL (3.80-5.20); RED CELL DISTRIBUTION WIDTH 15.5 % (11.5-14.5); WHITE BLOOD COUNT 5.4 K/uL (4.8-10.8)
[2017-09-19 00:01] LABS: ALBUMIN 4.1 g/dL (3.5-5.0); ALT/SGPT 37 U/L (9-52); AST/SGOT 33 U/L (14-36); BLOOD UREA NITROGEN 20 mg/dl (7-17); CALCIUM 9.5 mg/dL (8.4-10.2); GFR AFRICAN-AMERICAN > 60; GFR NON-AFRICAN AMERICAN > 60
[2017-09-19 00:14] LABS: INR 1.1 (0.9-1.2); PARTIAL THROMBOPLASTIN TIME 31.7 Seconds (25.6-37.1)
--- NOTE | 2017-09-19 03:02 | RAD ---
EXAM: XR Chest, 2 Views EXAM DATE/TIME: 09/18/2017 11:24 PM CLINICAL HISTORY: 61 years old, female; Pain; Chest pain; Additional info: Cp TECHNIQUE: Frontal and lateral views of the chest. COMPARISON: Prior chest radiographs of 2017-08-15 FINDINGS: LUNGS: Lungs are hyperinflated, suggestive of underlying COPD. Lungs appear clear radiographically, without evidence of significant focal consolidation/infiltrate or of diffuse pulmonary vascular congestion. PLEURAL SPACE: No pneumothorax or pleural effusions seen. HEART: Heart does not appear significantly enlarged. MEDIASTINUM: Mediastinal contour is within normal limits. BONES/JOINTS: Bony structures appear demineralized. Mild scoliotic curvature of the spine. VASCULATURE: Calcification of the aortic arch. IMPRESSION: - No radiographic evidence of acute disease in the chest. - See above for multiple non-emergent findings.
[2017-09-19 03:42] VITALS: BP 151/83
[2017-09-19 05:06] VITALS: PULSE 75
== END 2017-09-19 03:42 | disposition home or self-care (01) ==
LOC: H.ER 22:24
DX: R07.89 Other chest pain (principal); I25.10 Atherosclerotic heart disease of native coronary artery without angina pectoris; Z88.5 Allergy status to narcotic agent; Z90.710 Acquired absence of both cervix and uterus
CPT/HCPCS: 71046; 80053; 84484; 85025; 85610; 85730; 96360; 96374; 99285; J7040

== ENCOUNTER 2017-12-24 12:35 | Observation (INO) | payer OTHER ==
[2017-12-24 12:35] VITALS: BMI 25.8
--- NOTE | 2017-12-24 13:00 | ED PDOC ---
HPI: Chest Pain Time Seen by Provider: 12/24/17 12:47 Chief Complaint (Nursing): Chest Pain History Per: Patient Onset/Duration Of Symptoms: Days (1) Current Symptoms Are (Timing): Still Present Severity: Moderate Pain Scale Rating Of: 4 Quality: Pressure Associated Symptoms: Dyspnea Modifying Factors: None Exacerbating Factors: None Additional Complaint(s): Substernal michaelle pain radiating to both arms assoc with SOB x 1 day. No relief with ASA x 2. Feels like "gorilla sitting on chest". Travel to [facility] 3 weeks ago. Denies fever or cough. Past Medical History Vital Signs: Last Vital Signs Temp 98.3 F 12/24/17 12:39 Pulse 64 12/24/17 12:39 Resp 18 12/24/17 12:39 BP 134/77 12/24/17 12:39 Pulse Ox 100 12/24/17 13:00 - Medical History PMH: CAD Denies: Diabetes, HIV, Chronic Kidney Disease - Family History Family History: States: Unknown Family Hx, CAD - Immunization History Hx Tetanus Toxoid Vaccination: (UTD) - Home Medications Home Medications: Ambulatory Orders Medication Instructions Recorded Estrogen Supplement 1 cap PO DAILY 04/02/17 Nitrofurantoin Macrocrystals 100 mg PO BID #10 cap 08/15/17 [Macrobid] - Allergies Allergies/Adverse Reactions: Allergies Allergy/AdvReac Type Severity Reaction Status Date / Time ketorolac [From Toradol] AdvReac ITCHING Verified 12/24/17 12:38 morphine AdvReac ITCHING Verified 12/24/17 12:38 Review of Systems ROS Statement: Except As Marked, All Systems Reviewed And Found Negative Cardiovascular: Positive for: Chest Pain Respiratory: Positive for: Shortness of Breath Physical Exam - Reviewed Nursing Documentation Reviewed: Yes Vital Signs Reviewed: Yes - Physical Exam Appears: Positive for: Non-toxic, No Acute Distress Head Exam: Positive for: ATRAUMATIC, NORMAL INSPECTION, NORMOCEPHALIC Skin: Positive for: Normal Color, Warm, DRY Eye Exam: Positive for: EOMI, Normal appearance, PERRL ENT: Positive for: Normal ENT Inspection Neck: Positive for: Normal, Painless ROM Cardiovascular/Chest: Positive for: Regular Rate, Rhythm Respiratory: Positive for: CNT, Normal Breath Sounds Gastrointestinal/Abdominal: Positive for: Normal Exam, Soft Back: Positive for: Normal Inspection Extremity: Positive for: Normal ROM. Negative for: Calf Tenderness, Swelling Neurologic/Psych: Positive for: Alert, Oriented - ECG O2 Sat by Pulse Oximetry: 100 Disposition - Clinical Impression Clinical Impression: Chest pain - Patient ED Disposition Is Patient to be Admitted: Yes - Disposition Disposition Time: 14:46 Condition: FAIR Forms: [facility] (Amharic) - Pt Status Changed To: Hospital Disposition Of: Observation - POA Present On Arrival: None
--- NOTE | 2017-12-24 14:00 | RAD ---
HISTORY: chest pain COMPARISON: Comparison is made with 09/18/2017 TECHNIQUE: Chest PA and lateral FINDINGS: LUNGS: No active pulmonary disease. PLEURA: No significant pleural effusion identified. No pneumothorax apparent. CARDIOVASCULAR: Normal. OSSEOUS STRUCTURES: No significant abnormalities. VISUALIZED UPPER ABDOMEN: Normal. OTHER FINDINGS: None. IMPRESSION: No active disease.
[2017-12-24] MEDS ORDERED: Nitroglycerin 2% Ointment Foilpak UD TOP STA (14:45)
[2017-12-24 14:52] LABS: BASO % 0.8 % (0.0-2.0); EOS # 0.1 K/uL (0.0-0.7); HEMOGLOBIN 13.3 g/dL (12.0-16.0); LYMPH # 1.6 K/uL (1.0-4.3); LYMPH % 30.4 % (20.0-40.0); MEAN CELL VOLUME 85.1 fl (81.0-99.0); MEAN CORPUSCULAR HEMOGLOBIN 28.2 pg (27.0-31.0); MEAN CORPUSCULAR HGB CONC 33.2 g/dL (33.0-37.0); MEAN PLATELET VOLUME 9.1 fl (7.2-11.7); MONO # 0.4 K/uL (0.0-0.8); MONO % 7.3 % (0.0-10.0); NEUT # 3.2 K/uL (1.8-7.0); NEUT % 60.5 % (50.0-75.0); NRBC % 0.1 % (0.0-0.0); RBC 4.72 Mil/uL (3.80-5.20); RED CELL DISTRIBUTION WIDTH 14.7 % (11.5-14.5); WHITE BLOOD COUNT 5.3 K/uL (4.8-10.8)
[2017-12-24] MEDS ORDERED: Nitroglycerin 2% Ointment Foilpak UD TOP ONE (14:53)
[2017-12-24 15:01] LABS: ALB/GLOB RATIO 1.1 (1.0-2.1); ALT/SGPT 33 U/L (9-52); AST/SGOT 31 U/L (14-36); BLOOD UREA NITROGEN 17 mg/dl (7-17); CALCIUM 9.2 mg/dL (8.4-10.2); GFR AFRICAN-AMERICAN > 60; GFR NON-AFRICAN AMERICAN > 60
[2017-12-24] MEDS ORDERED: Sodium Chloride 0.9% 50 ML IV ONE (16:53)
[2017-12-24] MEDS ORDERED: Iodixanol 320 MG/ML 100 ML BOTTLE IV ONE (16:53)
--- NOTE | 2017-12-24 17:42 | CT ---
PROCEDURE: CT Chest with contrast (Pulmonary Angiogram) HISTORY: Chest pain COMPARISON: 10/19/2016 CT pulmonary angiogram. TECHNIQUE: Axial computed tomography images were obtained of the chest in the pulmonary arterial phase of enhancement. Coronal and sagittal reformatted images were created and reviewed. Maximum intensity projection (MIP) reconstructed images in the following planes: Axial only. Intravenous contrast dose: 90 cc Visipaque 320. Mean Hounsfield unit values in the main pulmonary artery: 322.51 Radiation dose: Total exam DLP = 339.27 mGy-cm. This CT exam was performed using one or more of the following dose reduction techniques: Automated exposure control, adjustment of the mA and/or kV according to patient size, and/or use of iterative reconstruction technique. FINDINGS: PULMONARY ARTERIES: Unremarkable. No pulmonary embolism. AORTA: No acute findings. No thoracic aortic aneurysm. LUNGS: Unremarkable. No nodule, mass or pulmonary consolidation. PLEURAL SPACES: Unremarkable. No effusion or pneuomothorax. HEART: Unremarkable. No cardiomegaly. No significant pericardial effusion. LYMPH NODES: No lymphadenopathy. BONES, CHEST WALL: Unremarkable. No fracture or destructive lesion OTHER FINDINGS: Nephrolithiasis, bilateral. IMPRESSION: Unremarkable CT pulmonary angiogram. No pulmonary embolus.No significant interval change compared to the prior examination(s).
[2017-12-24] MEDS ORDERED: DiphenhydrAMINE 50 mg/ml Inj IVP STA (19:34)
[2017-12-25 05:33] LABS: HEMOGLOBIN 13.7 g/dL (12.0-16.0); MEAN CELL VOLUME 85.3 fl (81.0-99.0); MEAN CORPUSCULAR HEMOGLOBIN 28.1 pg (27.0-31.0); RBC 4.86 Mil/uL (3.80-5.20); RED CELL DISTRIBUTION WIDTH 14.5 % (11.5-14.5); WHITE BLOOD COUNT 4.6 K/uL (4.8-10.8)
[2017-12-25 05:49] LABS: ALT/SGPT 28 U/L (9-52); AST/SGOT 26 U/L (14-36); BLOOD UREA NITROGEN 17 mg/dl (7-17); CALCIUM 9.5 mg/dL (8.4-10.2); GFR AFRICAN-AMERICAN > 60; GFR NON-AFRICAN AMERICAN > 60
[2017-12-25 05:58] LABS: T4 5.28 ug/dl (5.5-11.0)
[2017-12-25 12:10] VITALS: BP 125/77; PULSE 63; RESP 18; TEMP 98.5; O2SAT 100
--- NOTE | 2017-12-25 12:36 | CP.PCM.CON ---
History of Present Illness - History of Present Illness History of Present Illness: this 62-year-old female came to the emergency room complaining of chest pain. This was located in the left pectoral area and quite unconnected to any physical activity. Deep inspiration aggravated the discomfort. It did not radiate to her arm or into her jaw. It was not accompanied by any perspiration nausea vomiting. She is not a hypertensive diabetic or a smoker and has not needed any medication for dyslipidemia. Incidentally the patient has had 17 visits to the hospital for chest pain during last 3-1/2 years. None of these required any cardiac intervention. An none of these has revealed any abnormal cardiac findings. Physical examination shows a middle aged -[place] female who is quite alert awake weren't afebrile and comfortable while at rest. There was no area of tenderness in the precordium. Her heart rate was 70 bpm regular and her blood pressure was 124/74 mmHg. Her jugular venous pressure was not elevated and there was no edema over lower extremity. Her pedal pulses were well felt. There were no carotid bruits. Her extremities were warm her nailbeds were pink there was no central or peripheral cyanosis. There was no clubbing. The apex wasthe first and second heart sounds are normal there was no murmur or gallop there were no rales. Her abdomen was soft and liver and spleen are not palpable. Her electrocardiogram in the emergency room and again this morning showed sinus rhythm with no ST-T abnormalities suggestive of myocardial ischemia and no Q waves. Review off her earlier cardiograms located during her earlier visits to the emergency room showed similar EKG tracings. 2 sets of cardiac enzymes were negative for any evidence of myocyte injury. The rest of her lab data was noted. Impression: atypical chest pain no evidence of acute coronary syndrome. Patient' s coronary risk profile also does not indicate high risk findings. The patient may be allowed to return home to continue her care as an outpatient. Past Patient History - Infectious Disease Hx of Infectious Diseases: None - Tetanus Immunizations Tetanus Immunization: Unknown - Past Medical History & Family History Past Medical History?: Yes - Past Social History Smoking Status: Never Smoked - CARDIAC Hx Cardiac Disorders: No - PULMONARY Hx Respiratory Disorders: No - NEUROLOGICAL Hx Neurological Disorder: No - HEENT Hx HEENT Problems: No - RENAL Hx Chronic Kidney Disease: No - ENDOCRINE/METABOLIC Hx Endocrine Disorders: No - HEMATOLOGICAL/ONCOLOGICAL Hx Human Immunodeficiency Virus (HIV): No - INTEGUMENTARY Hx Dermatological Problems: No - MUSCULOSKELETAL/RHEUMATOLOGICAL Hx Falls: No - GASTROINTESTINAL Hx Gastrointestinal Disorders: No - GENITOURINARY/GYNECOLOGICAL Hx Genitourinary Disorders: No - PSYCHIATRIC Hx Psychophysiologic Disorder: No Hx Substance Use: No - SURGICAL HISTORY Hx Surgeries: Yes Hx Hysterectomy: Yes (secondary to uterine prolapse) - ANESTHESIA Hx Anesthesia: Yes Hx Anesthesia Reactions: No Hx Malignant Hyperthermia: No Meds Allergies/Adverse Reactions: Allergies Allergy/AdvReac Type Severity Reaction Status Date / Time ketorolac [From Toradol] AdvReac ITCHING Verified 12/24/17 12:38 morphine AdvReac ITCHING Verified 12/24/17 12:38 - Medications Medications: Current Medications Acetaminophen (Tylenol 325mg Tab) 650 mg PO Q4 PRN PRN Reason: Pain, moderate (4-7) Results - Vital Signs Recent Vital Signs: Last Vital Signs Temp 98.5 F 12/25/17 12:00 Pulse 63 12/25/17 12:00 Resp 18 12/25/17 12:00 BP 125/77 12/25/17 12:00 Pulse Ox 100 12/25/17 12:00 - Labs Result Diagrams: 12/25/17 04:20 12/25/17 04:20 Labs: Laboratory Results - last 24 hr 12/24/17 12/24/17 12/24/17 04:20 14:42 14:42 WBC 5.3 RBC 4.72 Hgb 13.3 Hct 40.2 MCV 85.1 MCH 28.2 MCHC 33.2 RDW 14.7 H Plt Count 155 MPV 9.1 Neut % (Auto) 60.5 Lymph % (Auto) 30.4 [place] % (Auto) 7.3 Eos % (Auto) 1.0 Baso % (Auto) 0.8 Neut # (Auto) 3.2 Lymph # (Auto) 1.6 [place] # (Auto) 0.4 Eos # (Auto) 0.1 Baso # (Auto) 0.0 D-Dimer, Quantitative Sodium 141 Potassium 4.2 Chloride 101 Carbon Dioxide 30 Anion Gap 14 BUN 17 Creatinine 0.9 Est GFR ( Amer) > 60 Est GFR (Non-Af Amer) > 60 Random Glucose 93 Calcium 9.2 Phosphorus Magnesium Total Bilirubin 0.6 AST 31 ALT 33 Alkaline Phosphatase 76 Troponin I < 0.0120 < 0.0120 Total Protein 7.6 Albumin 4.0 Globulin 3.5 Albumin/Globulin Ratio 1.1 Thyroxine (T4) TSH 3rd Generation 12/24/17 12/25/17 12/25/17 15:33 04:20 04:20 WBC 4.6 L RBC 4.86 Hgb 13.7 Hct 41.5 MCV 85.3 MCH 28.1 MCHC 33.0 RDW 14.5 Plt Count 149 MPV Neut % (Auto) Lymph % (Auto) [place] % (Auto) Eos % (Auto) Baso % (Auto) Neut # (Auto) Lymph # (Auto) [place] # (Auto) Eos # (Auto) Baso # (Auto) D-Dimer, Quantitative 609 H Sodium 141 Potassium 4.3 Chloride 105 Carbon Dioxide 26 Anion Gap 14 BUN 17 Creatinine 0.7 Est GFR ( Amer) > 60 Est GFR (Non-Af Amer) > 60 Random Glucose 133 H Calcium 9.5 Phosphorus 3.4 Magnesium 2.0 Total Bilirubin 0.4 AST 26 ALT 28 Alkaline Phosphatase 82 Troponin I Total Protein 7.8 Albumin 4.0 Globulin 3.9 Albumin/Globulin Ratio 1.0 Thyroxine (T4) 5.28 L TSH 3rd Generation 0.20 L
--- NOTE | 2017-12-25 15:34 | CP.PCM.HP ---
History of Present Illness - History of Present Illness History of Present Illness: 62 y/o F, Hx CAD, came to ER [facility] on 12/24/17 c/o of sudden Chest pain on DOA, described as L side, intermittent, pressure type, sharp, moderate intensity 4:10, associated to dyspnea, no cough. Pt took ASA with no relief. Worsening symptom: Increased pain with deep inspiration, numerous visits to ER due to Chest pain, but non of then requiring cardiac intervention. Aggravated factor: Movements/exercise. Pt denied: Fever, chills, cough, n/v/d, abdominal pain, syncope, dizziness, numbness, urinary symptoms, sick contact. Pt traveled to to [place] 3 weeks ago. CXR: No active disease. Chest CT: Unremarkable, no PE. EKG: Sinus Bradycardia. Present on Admission - Present on Admission Any Indicators Present on Admission: No Review of Systems - Constitutional Constitutional: Other (negative) - EENT Eyes: Requires Corrective Lenses Ears: Other (negative) Nose/Mouth/Throat: Other (negative) - Cardiovascular Cardiovascular: Chest Pain, Slow Heart Rate - Respiratory Respiratory: Other (negative) - Gastrointestinal Gastrointestinal: Other (negative) - Genitourinary Genitourinary: Other (negative) - Musculoskeletal Musculoskeletal: Other (negative) - Integumentary Integumentary: Other (negative) - Neurological Neurological: Other (negative) - Psychiatric Psychiatric: Other (negative) - Endocrine Endocrine: Other (negative) - Hematologic/Lymphatic Hematologic: Other (negative) Past Patient History - Infectious Disease Hx of Infectious Diseases: None - Tetanus Immunizations Tetanus Immunization: Unknown - Past Medical History & Family History Past Medical History?: Yes Pertinent Family History: Unknown - Past Social History Smoking Status: Never Smoked Alcohol: None Drugs: Denies Home Situation {Lives}: Alone - CARDIAC Hx Cardiac Disorders: Yes - PULMONARY Hx Respiratory Disorders: No - NEUROLOGICAL Hx Neurological Disorder: No - HEENT Hx HEENT Problems: No - RENAL Hx Chronic Kidney Disease: No - ENDOCRINE/METABOLIC Hx Endocrine Disorders: No - HEMATOLOGICAL/ONCOLOGICAL Hx Blood Disorders: No Hx Human Immunodeficiency Virus (HIV): No - INTEGUMENTARY Hx Dermatological Problems: No - MUSCULOSKELETAL/RHEUMATOLOGICAL Hx Musculoskeletal Disorders: No Hx Falls: No - GASTROINTESTINAL Hx Gastrointestinal Disorders: No - GENITOURINARY/GYNECOLOGICAL Hx Genitourinary Disorders: No - PSYCHIATRIC Hx Psychophysiologic Disorder: No Hx Substance Use: No - SURGICAL HISTORY Hx Surgeries: Yes Hx Hysterectomy: Yes (secondary to uterine prolapse) - ANESTHESIA Hx Anesthesia: Yes Hx Anesthesia Reactions: No Hx Malignant Hyperthermia: No Meds Allergies/Adverse Reactions: Allergies Allergy/AdvReac Type Severity Reaction Status Date / Time ketorolac [From Toradol] AdvReac ITCHING Verified 12/24/17 12:38 morphine AdvReac ITCHING Verified 12/24/17 12:38 Physical Exam - Constitutional Appears: No Acute Distress - Head Exam Head Exam: NORMAL INSPECTION - Eye Exam Eye Exam: PERRL - ENT Exam ENT Exam: Normal Exam - Neck Exam Neck exam: Positive for: Normal Inspection - Respiratory Exam Respiratory Exam: Clear to Auscultation Bilateral - Cardiovascular Exam Cardiovascular Exam: REGULAR RHYTHM - GI/Abdominal Exam GI & Abdominal Exam: Normal Bowel Sounds, Soft - Extremities Exam Extremities exam: Positive for: normal inspection - Back Exam Back exam: NORMAL INSPECTION - Neurological Exam Neurological exam: Alert, Oriented x3 Additional comments: No motor/sensory deficit. - Psychiatric Exam Psychiatric exam: Normal Mood - Skin Skin Exam: Warm Results - Vital Signs Recent Vital Signs: Last Vital Signs Temp 98.5 F 12/25/17 12:00 Pulse 63 12/25/17 12:00 Resp 18 12/25/17 12:00 BP 125/77 12/25/17 12:00 Pulse Ox 100 12/25/17 12:00 drea Thibodeaux - Labs Result Diagrams: 12/25/17 04:20 12/25/17 04:20 Labs: Laboratory Results - last 24 hr 12/24/17 12/24/17 12/25/17 04:20 15:33 04:20 WBC 4.6 L RBC 4.86 Hgb 13.7 Hct 41.5 MCV 85.3 MCH 28.1 MCHC 33.0 RDW 14.5 Plt Count 149 D-Dimer, Quantitative 609 H Sodium Potassium Chloride Carbon Dioxide Anion Gap BUN Creatinine Est GFR ( Amer) Est GFR (Non-Af Amer) Random Glucose Calcium Phosphorus Magnesium Total Bilirubin AST ALT Alkaline Phosphatase Troponin I < 0.0120 Total Protein Albumin Globulin Albumin/Globulin Ratio Thyroxine (T4) TSH 3rd Generation 12/25/17 12/25/17 04:20 12:27 WBC RBC Hgb Hct MCV MCH MCHC RDW Plt Count D-Dimer, Quantitative Sodium 141 Potassium 4.3 Chloride 105 Carbon Dioxide 26 Anion Gap 14 BUN 17 Creatinine 0.7 Est GFR ( Amer) > 60 Est GFR (Non-Af Amer) > 60 Random Glucose 133 H Calcium 9.5 Phosphorus 3.4 Magnesium 2.0 Total Bilirubin 0.4 AST 26 ALT 28 Alkaline Phosphatase 82 Troponin I < 0.0120 Total Protein 7.8 Albumin 4.0 Globulin 3.9 Albumin/Globulin Ratio 1.0 Thyroxine (T4) 5.28 L TSH 3rd Generation 0.20 L reviewed J.P. - EKG Data EKG comments: reviewed J.P. - Imaging and Cardiology Chest x-ray Status: Report reviewed by me (Carlos Eduardo) CT scan - chest Status: Report reviewed by me (Carlos Eduardo) Assessment & Plan (1) Chest pain, atypical Status: Acute Priority: High - Assessment and Plan (Free Text) Plan: Pt was seen by in home sales consultant with impression of CP Atypical and no evidence of acute coronary syndrome, cleared to return home to continue Tx as outpatient. Pt improved and stable to be discharged, f/u with PMD in a week. - Date & Time Date: 12/25/17 Time: 12:25
--- NOTE | 2017-12-26 12:11 | CARD ---
APPROVED REPORT Date of service: 12/25/2017 EKG Measurement Heart [id number] <Conclusion> Sinus bradycardia Early repolarization Otherwise normal ECG
--- NOTE | 2017-12-27 16:43 | CARD ---
APPROVED REPORT Date of service: 12/24/2017 EKG Measurement Heart [id number] <Conclusion> Normal sinus rhythm Possible Left atrial enlargement Borderline ECG
== END 2017-12-25 13:24 | disposition home or self-care (01) ==
LOC: H.ER 12:35 → H.ERHOLD 14:45 → H.TEL 18:22
PROVIDERS: ADMIT Internal Medicine Pulmonary Disease; ATTEND Internal Medicine Pulmonary Disease
DX: R07.89 Other chest pain (principal); I25.10 Atherosclerotic heart disease of native coronary artery without angina pectoris; Z88.5 Allergy status to narcotic agent
CPT/HCPCS: 36415; 71046; 71275; 80053; 83735; 84100; 84436; 84443; 84484; 85025; 85027; 85378; 93005; 96374; 99284; G0378; J1200; J1885; J2930; Q9967

== ENCOUNTER 2018-06-17 20:31 | Emergency (ER) | payer OTHER ==
[2018-06-17 20:31] VITALS: BMI 25.8
[2018-06-17 20:45] VITALS: BP 117/71; PULSE 83; RESP 16; TEMP 97.6; O2SAT 97
[2018-06-17] MEDS ORDERED: Oxycodone/Acetaminophen 5/325 mg Tab PO STA (21:57)
[2018-06-17] MEDS ORDERED: Oxycodone/Acetaminophen 5/325 mg Tab ONE (22:09)
--- NOTE | 2018-06-17 22:26 | ED PDOC ---
HPI: Female Pain Time Seen by Provider: 06/17/18 20:57 Chief Complaint (Nursing): Female Genitourinary Chief Complaint (Provider): Female Genitourinary History Per: Patient History/Exam Limitations: no limitations Onset/Duration Of Symptoms: Days (x2) Current Symptoms Are (Timing): Still Present Additional Complaint(s): 62 y/o female with a PMHx of HTN, Asthma, CAD and COPD presents to the ED for evaluation of a female genitourinary problem. Patient states that for the past two days, she has been feeling a "ball" in her vaginal area for the past two days. Patient reports of minimal discomfort with urination. Otherwise, patient denies fever and difficulty urinating. PMD: Sheri Villela Past Medical History Reviewed: Historical Data, Nursing Documentation, Vital Signs Vital Signs: Last Vital Signs Temp 97.6 F 06/17/18 20:36 Pulse 83 06/17/18 20:36 Resp 16 06/17/18 20:36 BP 117/71 06/17/18 20:36 Pulse Ox 97 06/17/18 20:36 - Medical History PMH: Asthma, CAD, COPD, HTN Denies: Diabetes, HIV, Chronic Kidney Disease - Surgical History Surgical History: No Surg Hx - Family History Family History: States: Unknown Family Hx, CAD - Immunization History Hx Tetanus Toxoid Vaccination: (UTD) - Home Medications Home Medications: Ambulatory Orders Medication Instructions Recorded Estrogen Supplement 1 cap PO DAILY 04/02/17 Nitrofurantoin Macrocrystals 100 mg PO BID #10 cap 08/15/17 [Macrobid] oxyCODONE/Acetaminophen [Percocet 1 tab PO Q6H PRN #8 tab 06/17/18 5/325 mg Tab] - Allergies Allergies/Adverse Reactions: Allergies Allergy/AdvReac Type Severity Reaction Status Date / Time ketorolac [From Toradol] AdvReac ITCHING Verified 12/24/17 12:38 morphine AdvReac ITCHING Verified 12/24/17 12:38 Review of Systems ROS Statement: Except As Marked, All Systems Reviewed And Found Negative Genitourinary Female: Positive for: Dysuria (minimal discomfort), Other ("Ball" in her vaginal area). Negative for: Frequency Physical Exam - Reviewed Nursing Documentation Reviewed: Yes Vital Signs Reviewed: Yes - Physical Exam Appears: Positive for: Uncomfortable Gastrointestinal/Abdominal: Positive for: Normal Exam, Soft. Negative for: Tenderness Pelvic Exam: Positive for: Other (mucosal tissue at the vaginal os. Able to retract back into vault. RN Dolores as strategy director. ). Negative for: Active Bleeding (or fluctuance) - ECG O2 Sat by Pulse Oximetry: 97 (RA) Pulse Ox Interpretation: Normal Medical Decision Making Medical Decision Making: Time: 2156 Plan: -- ED Urine Dipstick -- Percocet 5/325 mg 1 tab PO -- Spoke to Dr. Villela who recommend follow up in his office on for surgery vs. pessary placement Scribe Attestation: Documented by Sharyn Tariq, acting as a scribe for Nancy Miramontes MD. Provider Scribe Attestation: All medical record entries made by the Scribe were at my direction and personally dictated by me. I have reviewed the chart and agree that the record accurately reflects my personal performance of the history, physical exam, medical decision making, and the department course for this patient. I have also personally directed, reviewed, and agree with the discharge instructions and disposition. Disposition - Clinical Impression Clinical Impression: Vaginal vault prolapse after hysterectomy - Disposition Referrals: Sheri Villela MD [Staff Provider] - Condition: STABLE Additional Instructions: FOLLOW-UP WITH DR. VILLELA ON 06/20/18. Prescriptions: oxyCODONE/Acetaminophen [Percocet 5/325 mg Tab] 1 tab PO Q6H PRN #8 tab PRN Reason: Pain, Severe (8-10) Instructions: Vaginal Prolapse Forms: [employer] (Bulgarian)
== END 2018-06-17 22:23 | disposition home or self-care (01) ==
LOC: H.ER 20:31
DX: N99.3 Prolapse of vaginal vault after hysterectomy (principal); Z90.710 Acquired absence of both cervix and uterus; I10 Essential (primary) hypertension; J44.9 Chronic obstructive pulmonary disease, unspecified; Z82.49 Family history of ischemic heart disease and other diseases of the circulatory system; Z88.5 Allergy status to narcotic agent

== ENCOUNTER 2018-07-26 20:01 | Emergency (ER) | payer OTHER ==
[2018-07-26 20:01] VITALS: BMI 25.8
[2018-07-26 20:07] VITALS: RESP 18; O2SAT 100
[2018-07-26 21:30] LABS: SQUAMOUS EPITHIAL 70 /hpf (0-5); URINE BACTERIA RARE (<OCC); URINE BILIRUBIN NEGATIVE (NEGATIVE); URINE BLOOD NEGATIVE (NEGATIVE); URINE CLARITY TURBID (Clear); URINE COLOR YELLOW (YELLOW); URINE GLUCOSE (UA) NEG (NEGATIVE); URINE LEUKOCYTE ESTERASE NEG Leu/uL (Negative); URINE PROTEIN 30 mg/dL (NEGATIVE); URINE UROBILINOGEN 0.2-1.0 mg/dL (0.2-1.0)
--- NOTE | 2018-07-26 21:57 | ED PDOC ---
HPI: Female Pain Time Seen by Provider: 07/26/18 20:30 Chief Complaint (Nursing): Abdominal Pain Chief Complaint (Provider): pelvic pressure History Per: Patient Onset/Duration Of Symptoms: Days (1) Current Symptoms Are (Timing): Still Present Quality Of Discomfort: Aching, Pressure Associated Symptoms: Urinary Symptoms (frequency). denies: Fever, Chills, Nausea, Vomiting, Diarrhea Additional Complaint(s): pt with known vaginal prolapse reporting abd/pelvic pain for 1 day currently undergoing workup/management for prolapse with dr christensen. plan to have transvaginal US and then make decision of treatment plan. taking tylenol with some relief Past Medical History Reviewed: Historical Data, Nursing Documentation, Vital Signs Vital Signs: Last Vital Signs Temp 97.9 F 07/26/18 20:05 Pulse 72 07/26/18 20:05 Resp 18 07/26/18 20:05 BP 124/77 07/26/18 20:05 Pulse Ox 100 07/26/18 20:05 - Medical History PMH: Asthma, CAD, COPD, HTN Denies: Diabetes, HIV, Chronic Kidney Disease - Family History Family History: States: Unknown Family Hx, CAD - Immunization History Hx Tetanus Toxoid Vaccination: (UTD) - Home Medications Home Medications: Ambulatory Orders Medication Instructions Recorded Estrogen Supplement 1 cap PO DAILY 04/02/17 Nitrofurantoin Macrocrystals 100 mg PO BID #10 cap 08/15/17 [Macrobid] oxyCODONE/Acetaminophen [Percocet 1 tab PO Q6H PRN #8 tab 06/17/18 5/325 mg Tab] - Allergies Allergies/Adverse Reactions: Allergies Allergy/AdvReac Type Severity Reaction Status Date / Time ketorolac [From Toradol] AdvReac ITCHING Verified 12/24/17 12:38 morphine AdvReac ITCHING Verified 12/24/17 12:38 Review of Systems ROS Statement: Except As Marked, All Systems Reviewed And Found Negative (and as per HPI) Constitutional: Negative for: Fever, Chills Gastrointestinal: Positive for: Abdominal Pain. Negative for: Nausea, Vomiting, Diarrhea Genitourinary Female: Positive for: Dysuria, Frequency, Pelvic Pain. Negative for: Vaginal Discharge, Vaginal Bleeding Physical Exam - Reviewed Nursing Documentation Reviewed: Yes Vital Signs Reviewed: Yes - Physical Exam Appears: Positive for: Non-toxic, No Acute Distress Head Exam: Positive for: ATRAUMATIC, NORMOCEPHALIC Skin: Positive for: Warm, Dry Gastrointestinal/Abdominal: Positive for: Bowel Sounds, Soft, Tenderness (suprapubic). Negative for: Mass, Distended, Guarding, Rebound Pelvic Exam: Positive for: External Exam Normal, Other (vaginal prolapse visible vulvar opening) Back: Negative for: L CVA Tenderness, R CVA Tenderness - Laboratory Results Lab Results: Urine Color Yellow (YELLOW) 07/26/18 21:10 Urine Clarity Turbid (Clear) 07/26/18 21:10 Urine pH 5.0 (5.0-8.0) 07/26/18 21:10 Ur Specific [place] 1.029 (1.003-1.030) 07/26/18 21:10 Urine Protein 30 mg/dL (NEGATIVE) 07/26/18 21:10 Urine Glucose (UA) Neg mg/dL (NEGATIVE) 07/26/18 21:10 Urine Ketones Trace mg/dL (NEGATIVE) 07/26/18 21:10 Urine Blood Negative (NEGATIVE) 07/26/18 21:10 Urine Nitrate Negative (NEGATIVE) 07/26/18 21:10 Urine Bilirubin Negative (NEGATIVE) 07/26/18 21:10 Urine Urobilinogen 0.2-1.0 mg/dL (0.2-1.0) 07/26/18 21:10 Ur Leukocyte Esterase Neg [place]/uL (Negative) 07/26/18 21:10 Urine RBC (Auto) 2 /hpf (0-3) 07/26/18 21:10 Urine Microscopic WBC 2 /hpf (0-5) 07/26/18 21:10 Ur Squamous Epith Cells 70 /hpf (0-5) H 07/26/18 21:10 Urine Bacteria Rare (<OCC) 07/26/18 21:10 - ECG O2 Sat by Pulse Oximetry: 100 - Progress ED Course And Treament: CLINICAL HISTORY: Pelvic pressure. TECHNIQUE: Realtime sonographic images were obtained in multiple projections. COMMENTS: Status post hysterectomy. The right and left ovaries are not visualized. Multiple loops of bowel are seen in the pelvis area. IMPRESSION: 1. Limited study. 2. Multiple loops of bowel in pelvis area. Electronically signed on Jul 26, 2018 10:48:56 PM EST by: En Lewis M.D., TINY Certified By ABR & CBCCT Fellowship Trained MRI and CT Specialist Disposition - Clinical Impression Clinical Impression: Vaginal prolapse - Disposition Referrals: Sheri Christensen MD [Staff Provider] - Disposition: Routine/Home Disposition Time: 22:58 Condition: STABLE Instructions: Cystocele and Rectocele (DC), How to Do a Sitz Bath Forms: [facility] ED School/Work Excuse
[2018-07-26 23:43] VITALS: BP 120/75; PULSE 76; TEMP 98.2
--- NOTE | 2018-07-27 10:05 | US ---
Date of service: 07/26/2018 HISTORY: pelvic pressure COMPARISON: None available. TECHNIQUE: Grayscale, color Doppler and spectral evaluation the pelvis performed transvaginally. FINDINGS: UTERUS: Prior hysterectomy RIGHT OVARY: Not visualized LEFT OVARY: Not visualized FREE FLUID: No significant free fluid noted. OTHER FINDINGS: None. IMPRESSION: Prior hysterectomy. Nonvisualization of the ovaries.
== END 2018-07-26 23:20 | disposition home or self-care (01) ==
LOC: H.ER 20:01
DX: N99.3 Prolapse of vaginal vault after hysterectomy (principal); R10.2 Pelvic and perineal pain

== ENCOUNTER 2018-09-03 13:09 | Observation (INO) | payer OTHER ==
[2018-09-03 13:09] VITALS: BMI 25.8
--- NOTE | 2018-09-03 13:54 | ED PDOC ---
HPI: Chest Pain Time Seen by Provider: 09/03/18 13:39 Chief Complaint (Nursing): Chest Pain History Per: Patient Onset/Duration Of Symptoms: Days (1) Severity: Moderate Quality: Tightness Modifying Factors: None Exacerbating Factors: None Alleviating Factors: None Additional Complaint(s): Chest tyigtness radiating to neck and jaw x 1 hr. Denies SOB. Occurred while getting out of car. Took 2 baby ASA Past Medical History Vital Signs: Last Vital Signs Temp 97.2 F L 09/03/18 13:13 Pulse 74 09/03/18 13:13 Resp 16 09/03/18 13:13 BP 134/74 09/03/18 13:13 Pulse Ox 100 09/03/18 13:13 - Medical History PMH: Asthma, CAD, COPD, HTN Denies: Diabetes, HIV, Chronic Kidney Disease - Family History Family History: States: Unknown Family Hx, CAD - Immunization History Hx Tetanus Toxoid Vaccination: (UTD) - Home Medications Home Medications: Ambulatory Orders Medication Instructions Recorded Estrogen Supplement 1 cap PO DAILY 04/02/17 Nitrofurantoin Macrocrystals 100 mg PO BID #10 cap 08/15/17 [Macrobid] oxyCODONE/Acetaminophen [Percocet 1 tab PO Q6H PRN #8 tab 06/17/18 5/325 mg Tab] - Allergies Allergies/Adverse Reactions: Allergies Allergy/AdvReac Type Severity Reaction Status Date / Time ketorolac [From Toradol] AdvReac ITCHING Verified 09/03/18 13:13 morphine AdvReac ITCHING Verified 09/03/18 13:13 Review of Systems ROS Statement: Except As Marked, All Systems Reviewed And Found Negative Cardiovascular: Positive for: Chest Pain Physical Exam - Reviewed Nursing Documentation Reviewed: Yes Vital Signs Reviewed: Yes - Physical Exam Appears: Positive for: Non-toxic, No Acute Distress Head Exam: Positive for: ATRAUMATIC, NORMAL INSPECTION, NORMOCEPHALIC Skin: Positive for: Normal Color, Warm, DRY Eye Exam: Positive for: EOMI, Normal appearance, PERRL ENT: Positive for: Normal ENT Inspection Neck: Positive for: Normal, Painless ROM Cardiovascular/Chest: Positive for: Regular Rate, Rhythm Respiratory: Positive for: CNT, Normal Breath Sounds Gastrointestinal/Abdominal: Positive for: Normal Exam, Soft Back: Positive for: Normal Inspection Extremity: Positive for: Normal ROM Neurological/Psych: Positive for: Awake, Alert, Normal Tone - ECG O2 Sat by Pulse Oximetry: 100 Disposition - Clinical Impression Clinical Impression: Chest pain - Patient ED Disposition Is Patient to be Admitted: Yes - Disposition Disposition Time: 13:53 Condition: FAIR - Pt Status Changed To: Hospital Disposition Of: Observation - POA Present On Arrival: None
--- NOTE | 2018-09-03 14:30 | RAD ---
HISTORY: Chest pain COMPARISON: Chest x-ray performed 12/24/17 TECHNIQUE: Chest PA and lateral FINDINGS: LUNGS: No focal consolidation. Please note that chest x-ray has limited sensitivity for the detection of pulmonary masses. PLEURA: No significant pleural effusion identified. No definite pneumothorax . CARDIOVASCULAR: Heart size appears within normal limits. No atherosclerotic calcification present. OSSEOUS STRUCTURES: Osseous demineralization. Degenerative changes. VISUALIZED UPPER ABDOMEN: Unremarkable. OTHER FINDINGS: None. IMPRESSION: No focal consolidation.
[2018-09-03 14:40] LABS: BASO % 0.7 % (0.0-2.0); EOS # 0.1 K/uL (0.0-0.7); EOS % 1.9 % (0.0-4.0); LYMPH # 1.4 K/uL (1.0-4.3); LYMPH % 32.5 % (20.0-40.0); MEAN CELL VOLUME 85.7 fl (81.0-99.0); MEAN CORPUSCULAR HEMOGLOBIN 27.6 pg (27.0-31.0); MEAN CORPUSCULAR HGB CONC 32.2 g/dL (33.0-37.0); MONO # 0.4 K/uL (0.0-0.8); MONO % 8.4 % (0.0-10.0); NEUT # 2.4 K/uL (1.8-7.0); NEUT % 56.5 % (50.0-75.0); NRBC % 0.2 % (0.0-0.0); RBC 4.71 Mil/uL (3.80-5.20); RED CELL DISTRIBUTION WIDTH 15.2 % (11.5-14.5); WHITE BLOOD COUNT 4.2 K/uL (4.8-10.8)
[2018-09-03 14:49] LABS: ALB/GLOB RATIO 1.1 (1.0-2.1); ALBUMIN 4.1 g/dL (3.5-5.0); BLOOD UREA NITROGEN 14 mg/dl (7-17); CALCIUM 9.3 mg/dL (8.4-10.2); GFR NON-AFRICAN AMERICAN > 60
[2018-09-03 15:02] LABS: ALT/SGPT 25 U/L (9-52); AST/SGOT 31 U/L (14-36)
[2018-09-03] MEDS ORDERED: Nitroglycerin 2% 15 INCH/30 GM TUBE TOP STA (16:46)
[2018-09-03] MEDS ORDERED: Nitroglycerin 2% Ointment Foilpak UD TOP ONE (16:51)
[2018-09-03] MEDS ORDERED: Nitroglycerin 2% Ointment Foilpak UD TOP STA (16:55)
--- NOTE | 2018-09-03 18:23 | CP.PCM.HP ---
Past Patient History - Infectious Disease Hx of Infectious Diseases: None - Tetanus Immunizations Tetanus Immunization: Unknown - Past Medical History & Family History Past Medical History?: Yes - Past Social History Smoking Status: Never Smoked - CARDIAC Hx Cardiac Disorders: Yes - PULMONARY Hx Asthma: Yes Hx Chronic Obstructive Pulmonary Disease (COPD): Yes - NEUROLOGICAL Hx Neurological Disorder: No - HEENT Hx HEENT Problems: No - RENAL Hx Chronic Kidney Disease: No - ENDOCRINE/METABOLIC Hx Endocrine Disorders: No - HEMATOLOGICAL/ONCOLOGICAL Hx Human Immunodeficiency Virus (HIV): No - INTEGUMENTARY Hx Dermatological Problems: No - MUSCULOSKELETAL/RHEUMATOLOGICAL Hx Musculoskeletal Disorders: No - GASTROINTESTINAL Hx Gastrointestinal Disorders: No - GENITOURINARY/GYNECOLOGICAL Hx Genitourinary Disorders: No - PSYCHIATRIC Hx Psychophysiologic Disorder: No - SURGICAL HISTORY Hx Surgeries: Yes Hx Hysterectomy: Yes (secondary to uterine prolapse) - ANESTHESIA Hx Anesthesia: Yes Hx Anesthesia Reactions: No Hx Malignant Hyperthermia: No Meds Allergies/Adverse Reactions: Allergies Allergy/AdvReac Type Severity Reaction Status Date / Time ketorolac [From Toradol] AdvReac ITCHING Verified 09/03/18 13:13 morphine AdvReac ITCHING Verified 09/03/18 13:13 Physical Exam - Constitutional Appears: Well - Head Exam Head Exam: ATRAUMATIC, NORMAL INSPECTION, NORMOCEPHALIC - Eye Exam Eye Exam: EOMI, Normal appearance, PERRL Pupil Exam: NORMAL ACCOMODATION, PERRL - ENT Exam ENT Exam: Mucous Membranes Moist, Normal Exam - Neck Exam Neck exam: Positive for: Normal Inspection - Respiratory Exam Respiratory Exam: Decreased Breath Sounds - Cardiovascular Exam Cardiovascular Exam: REGULAR RHYTHM, +S1, +S2 - GI/Abdominal Exam GI & Abdominal Exam: Diminished Bowel Sounds, Soft - Rectal Exam Rectal Exam: Deferred Results - Vital Signs Recent Vital Signs: Last Vital Signs Temp 97.6 F 09/03/18 17:35 Pulse 78 09/03/18 17:35 Resp 19 09/03/18 17:35 BP 128/78 09/03/18 17:35 Pulse Ox 98 09/03/18 17:35 - Labs Result Diagrams: 09/03/18 14:30 09/03/18 14:30 Labs: Laboratory Results - last 24 hr 09/03/18 09/03/18 14:30 14:30 WBC 4.2 L RBC 4.71 Hgb 13.0 Hct 40.4 MCV 85.7 MCH 27.6 MCHC 32.2 L RDW 15.2 H Plt Count 168 MPV 9.0 Neut % (Auto) 56.5 Lymph % (Auto) 32.5 [place] % (Auto) 8.4 Eos % (Auto) 1.9 Baso % (Auto) 0.7 Neut # (Auto) 2.4 Lymph # (Auto) 1.4 [place] # (Auto) 0.4 Eos # (Auto) 0.1 Baso # (Auto) 0.0 Sodium 141 Potassium 4.3 Chloride 99 Carbon Dioxide 32 H Anion Gap 14 BUN 14 Creatinine 0.8 Est GFR ( Amer) > 60 Est GFR (Non-Af Amer) > 60 Random Glucose 72 Calcium 9.3 Total Bilirubin 0.4 AST 31 ALT 25 Alkaline Phosphatase 71 Troponin I < 0.0120 Total Protein 7.8 Albumin 4.1 Globulin 3.7 Albumin/Globulin Ratio 1.1
--- NOTE | 2018-09-03 20:29 | CARD ---
APPROVED REPORT Date of service: 09/03/2018 EXAM: Two-dimensional and M-mode echocardiogram with Doppler and color Doppler. Other Information Quality : GoodRhythm : NSR INDICATION Chest Pain 2D DIMENSIONS IVSd0.59 (0.7-1.1cm)LVDd4.73 (3.9-5.9cm) LVOT Diameter1.99 (1.8-2.4cm)PWd1.00 (0.7-1.1cm) IVSs1.11 (0.8-1.2cm)LVDs2.90 (2.5-4.0cm) FS (%) 38.6 %PWs1.53 (0.8-1.2cm) M-Mode DIMENSIONS Left Atrium (MM)3.76 (2.5-4.0cm)IVSd0.93 (0.7-1.1cm) Aortic Root2.52 (2.2-3.7cm)LVDd5.04 (4.0-5.6cm) Aortic Cusp Exc.1.57 (1.5-2.0cm)PWd0.95 (0.7-1.1cm) IVSs1.39 cmFS (%) 45 % LVDs2.78 (2.0-3.8cm)PWs1.31 cm Aortic Valve AoV Peak Uscvmkuy102.7cm/sAoV VTI33.0cmAO Peak GR.8mmHg LVOT Peak Ylaxiafc26.8cm/sLVOT VTI21.92cmAO Mean GR.5mmHg LEI (VMAX)1.04mb9NVG (VTI)1.14cm2 Mitral Valve MV E Osnjrsxf23.2cm/sMV DECEL [id number] A Vquwvylc75.2cm/s MV ZVR41coB/A ratio1.3MVA (PHT)3.66cm2 TDI Lateral E' Peak V10.43cm/sMedial E' Peak V11.65cm/sE/Lateral E'8.6 E/Medial E'7.7 Tricuspid Valve TR Peak Praeeenc829ja/sRAP WXOMZRRC31tpEgTE Peak Gr.26mmHg [id number] LEFT VENTRICLE The left ventricle is normal size. There is normal left ventricular wall thickness. The left ventricular systolic function is normal. The estimated ejection fraction is 60-65% No regional wall motion abnormalities noted.. The left ventricular diastolic function is normal. No left ventricle thrombus noted on this study. There is no ventricular septal defect visualized. There is no left ventricular aneurysm. There is no mass noted in the left ventricle. RIGHT VENTRICLE The right ventricle is normal size. There is normal right ventricular wall thickness. The right ventricular systolic function is normal. ATRIA The left atrium size is normal. The right atrium size is normal. The interatrial septum is intact with no evidence for an atrial septal defect. AORTIC VALVE The aortic valve is normal in structure. No aortic regurgitation is present. There is no aortic valvular stenosis. There is no aortic valvular vegetation. MITRAL VALVE The mitral valve is normal in structure. There is no evidence of mitral valve prolapse. There is no mitral valve stenosis. There is mild mitral valve regurgitation noted. TRICUSPID VALVE The tricuspid valve is normal in structure. There is trace tricuspid valve regurgitation noted. RVSP is calculated at 35 mm Hg. There is no tricuspid valve prolapse or vegetation. There is no tricuspid valve stenosis. PULMONIC VALVE The pulmonary valve is normal in structure. There is no pulmonic valvular regurgitation. There is no pulmonic valvular stenosis. GREAT VESSELS The aortic root is normal in size. The ascending aorta is normal in size. The pulmonary artery is normal. The IVC is mildly dilated in size and collapses >50% with inspiration. PERICARDIAL EFFUSION There is no pericardial effusion. There is no pleural effusion. <Conclusion> The estimated ejection fraction is 60-65% The left ventricular diastolic function is normal. The left atrium size is normal. There is mild mitral valve regurgitation noted. There is trace tricuspid valve regurgitation noted. RVSP is calculated at 35 mm Hg. The IVC is mildly dilated in size and collapses >50% with inspiration.
[2018-09-03] MEDS ORDERED: DiphenhydrAMINE 50 mg/ml Inj IVP STA (22:13)
--- NOTE | 2018-09-03 22:27 | CP.PCM.HP ---
History of Present Illness - History of Present Illness History of Present Illness: CC: Chest pain. 62 y/o F, with Multiple hospital admissions for Chest pain, Hx. CAD, HTN, COPD, Rheumatoid fever, Pt came to [facility] on 09/03/18 to be evaluated for Chest pain, onset day [employer] , increased on DOA, Pt took 2 baby ASA with no improvement. Pain described as mid-sternal, dull/tightness type, intermittent, moderate intensity 6-8:10, associate to fatigue after she walked one block to get the bus in [place], also pain radiated to neck and jaws from 1 hr prio to arrival to hospital.. Pt had numerous admission to hospital due to CP, non requiring intervention. Worsening symptoms: Nausea with one episode of vomiting NBNB, while in the ER. Aggravated factor: ADL's. Pt denied: Fever, chills, diarrhea, abdominal pain, urinary symptoms, back pain, palpitations, syncope, dizziness, SOB, cough, sick contact, recent travel out of [facility]. Present on Admission - Present on Admission Any Indicators Present on Admission: No Review of Systems - Constitutional Constitutional: Other (negative) - EENT Eyes: Requires Corrective Lenses Ears: Other (negative) Nose/Mouth/Throat: Other (negative) - Cardiovascular Cardiovascular: Chest Pain - Respiratory Respiratory: Other (negative) - Gastrointestinal Gastrointestinal: Nausea, Vomiting (x 2) - Genitourinary Genitourinary: Other (negative) - Musculoskeletal Musculoskeletal: Other (negative) - Integumentary Integumentary: Other (negative) - Neurological Neurological: Other (negative) - Psychiatric Psychiatric: Other (negative) - Endocrine Endocrine: Other (negative) - Hematologic/Lymphatic Hematologic: Other (negative) Past Patient History - Infectious Disease Hx of Infectious Diseases: None - Tetanus Immunizations Tetanus Immunization: Unknown - Past Medical History & Family History Past Medical History?: Yes Pertinent Family History: Father at 80 yrs old from [place] - Past Social History Smoking Status: Never Smoked Alcohol: None Drugs: Denies Home Situation {Lives}: Alone - CARDIAC Hx Cardiac Disorders: Yes Hx Hypertension: Yes - PULMONARY Hx Respiratory Disorders: Yes Hx Asthma: Yes Hx Chronic Obstructive Pulmonary Disease (COPD): Yes - NEUROLOGICAL Hx Neurological Disorder: No - HEENT Hx HEENT Problems: No - RENAL Hx Chronic Kidney Disease: No - ENDOCRINE/METABOLIC Hx Endocrine Disorders: No - HEMATOLOGICAL/ONCOLOGICAL Hx Blood Disorders: No Hx Human Immunodeficiency Virus (HIV): No - INTEGUMENTARY Hx Dermatological Problems: No - MUSCULOSKELETAL/RHEUMATOLOGICAL Hx Musculoskeletal Disorders: No - GASTROINTESTINAL Hx Gastrointestinal Disorders: No - GENITOURINARY/GYNECOLOGICAL Hx Genitourinary Disorders: No - PSYCHIATRIC Hx Psychophysiologic Disorder: No - SURGICAL HISTORY Hx Surgeries: Yes Hx Hysterectomy: Yes (secondary to uterine prolapse) - ANESTHESIA Hx Anesthesia: Yes Hx Anesthesia Reactions: No Hx Malignant Hyperthermia: No Meds Allergies/Adverse Reactions: Allergies Allergy/AdvReac Type Severity Reaction Status Date / Time ketorolac [From Toradol] AdvReac ITCHING Verified 09/03/18 13:13 morphine AdvReac ITCHING Verified 09/03/18 13:13 Physical Exam - Constitutional Appears: No Acute Distress - Head Exam Head Exam: NORMAL INSPECTION - Eye Exam Eye Exam: PERRL - ENT Exam ENT Exam: Normal Exam - Neck Exam Neck exam: Positive for: Normal Inspection - Respiratory Exam Respiratory Exam: NORMAL BREATHING PATTERN - Cardiovascular Exam Cardiovascular Exam: REGULAR RHYTHM - GI/Abdominal Exam GI & Abdominal Exam: Normal Bowel Sounds, Soft - Extremities Exam Extremities exam: Positive for: normal inspection - Back Exam Back exam: NORMAL INSPECTION - Neurological Exam Neurological exam: Alert, Oriented x3 Additional comments: No motor/sensory deficit. - Psychiatric Exam Psychiatric exam: Normal Mood - Skin Skin Exam: Warm Results - Vital Signs Recent Vital Signs: Last Vital Signs Temp 97.4 F L 09/03/18 20:13 Pulse 64 09/03/18 20:13 Resp 16 09/03/18 20:13 BP 132/72 09/03/18 20:13 Pulse Ox 98 09/03/18 20:13 reviewed J.PRich - Labs Result Diagrams: 09/04/18 05:25 09/04/18 05:25 Labs: Laboratory Results - last 24 hr 09/03/18 09/03/18 14:30 14:30 WBC 4.2 L RBC 4.71 Hgb 13.0 Hct 40.4 MCV 85.7 MCH 27.6 MCHC 32.2 L RDW 15.2 H Plt Count 168 MPV 9.0 Neut % (Auto) 56.5 Lymph % (Auto) 32.5 [place] % (Auto) 8.4 Eos % (Auto) 1.9 Baso % (Auto) 0.7 Neut # (Auto) 2.4 Lymph # (Auto) 1.4 [place] # (Auto) 0.4 Eos # (Auto) 0.1 Baso # (Auto) 0.0 Sodium 141 Potassium 4.3 Chloride 99 Carbon Dioxide 32 H Anion Gap 14 BUN 14 Creatinine 0.8 Est GFR ( Amer) > 60 Est GFR (Non-Af Amer) > 60 Random Glucose 72 Calcium 9.3 Total Bilirubin 0.4 AST 31 ALT 25 Alkaline Phosphatase 71 Troponin I < 0.0120 Total Protein 7.8 Albumin 4.1 Globulin 3.7 Albumin/Globulin Ratio 1.1 reviewed J.P. - EKG Data EKG comments: reviewed J.P. - Imaging and Cardiology Chest x-ray Status: Report reviewed by me (J.P.) Echocardiogram Status: Report reviewed by me Assessment & Plan (1) Chest pain Status: Acute Priority: High (2) HTN (hypertension) Status: Chronic Priority: Medium - Assessment and Plan (Free Text) Plan: PT had NTG stat with improvement, Cardiology consult. - Date & Time Date: 09/03/18 Time: 22:00
[2018-09-04 06:12] LABS: HEMOGLOBIN 12.5 g/dL (12.0-16.0); MEAN CORPUSCULAR HEMOGLOBIN 27.4 pg (27.0-31.0); MEAN CORPUSCULAR HGB CONC 32.3 g/dL (33.0-37.0); RBC 4.57 Mil/uL (3.80-5.20); RED CELL DISTRIBUTION WIDTH 14.7 % (11.5-14.5); WHITE BLOOD COUNT 4.4 K/uL (4.8-10.8)
[2018-09-04 06:35] LABS: ALB/GLOB RATIO 1.1 (1.0-2.1); ALBUMIN 3.6 g/dL (3.5-5.0); ALT/SGPT 24 U/L (9-52); AST/SGOT 25 U/L (14-36); BLOOD UREA NITROGEN 20 mg/dl (7-17); CALCIUM 9.3 mg/dL (8.4-10.2); GFR NON-AFRICAN AMERICAN > 60; HDL CHOLESTEROL 71 MG/DL (30-70); LDL CHOLESTEROL < 30 mg/dL (0-129)
--- NOTE | 2018-09-04 09:03 | CARD ---
APPROVED REPORT Date of service: 09/03/2018 EKG Measurement Heart [id number] <Conclusion> Normal sinus rhythm Nonspecific T wave abnormality Abnormal ECG
--- NOTE | 2018-09-04 10:37 | CP.PCM.CON ---
History of Present Illness - History of Present Illness History of Present Illness: Martín Durbin, PGY-1, Cardiology Consult Note for Dr. Figueroa 62 year old female with past medical history of CAD, asthma, COPD, hypertension, vaginal prolapse, lead poisoning, rheumatic fever presents with chest tightness that started yesterday on the way to the hospital. Patient walked one block to get to her bus and patient started to feel chest tightness, jaw pain, neck pain, and nausea. Patient reported that she had an episode of NBNB vomitus in the emergency department. Patient's pain improved with nitroglycerin paste in the emergency department. Patient reported also feeling dizziness during this episode which also ceased with the nitroglycerin paste. Patient today reports significant improvement in chest pain, dizziness, and has no nausea at this time. Patient also denies shortness of breath, left arm pain, jaw pain today. 12-point ROS was unremarkable except for what was mentioned above PMH: as stated above PSH: oophorectomy, hysterectomy FMHx: Father from [place] at 80 SHx: denies tobacco, alcohol, or recreational drug use Allergies: ketorolac, morphine PMD: Dr. Dallas Thurston Home medications: estrogen cream from vaginal prolapse Patient had a stress test in 2016 which was unremarkable. Patient has never had a cardiac catheterization. Review of Systems - Review of Systems Review of Systems: except as mentioned in HPI Past Patient History - Infectious Disease Hx of Infectious Diseases: None - Tetanus Immunizations Tetanus Immunization: Unknown - Past Medical History & Family History Past Medical History?: Yes - Past Social History Smoking Status: Never Smoked - CARDIAC Hx Cardiac Disorders: Yes - PULMONARY Hx Asthma: Yes Hx Chronic Obstructive Pulmonary Disease (COPD): Yes - NEUROLOGICAL Hx Neurological Disorder: No - HEENT Hx HEENT Problems: No - RENAL Hx Chronic Kidney Disease: No - ENDOCRINE/METABOLIC Hx Endocrine Disorders: No - HEMATOLOGICAL/ONCOLOGICAL Hx Human Immunodeficiency Virus (HIV): No - INTEGUMENTARY Hx Dermatological Problems: No - MUSCULOSKELETAL/RHEUMATOLOGICAL Hx Musculoskeletal Disorders: No - GASTROINTESTINAL Hx Gastrointestinal Disorders: No - GENITOURINARY/GYNECOLOGICAL Hx Genitourinary Disorders: No - PSYCHIATRIC Hx Psychophysiologic Disorder: No - SURGICAL HISTORY Hx Surgeries: Yes Hx Hysterectomy: Yes (secondary to uterine prolapse) - ANESTHESIA Hx Anesthesia: Yes Hx Anesthesia Reactions: No Hx Malignant Hyperthermia: No Meds Allergies/Adverse Reactions: Allergies Allergy/AdvReac Type Severity Reaction Status Date / Time ketorolac [From Toradol] AdvReac ITCHING Verified 09/03/18 13:13 morphine AdvReac ITCHING Verified 09/03/18 13:13 Physical Exam - Constitutional Appears: Well, Non-toxic, No Acute Distress - Head Exam Head Exam: ATRAUMATIC, NORMAL INSPECTION, NORMOCEPHALIC - Eye Exam Eye Exam: EOMI, PERRL - ENT Exam ENT Exam: Mucous Membranes Moist - Respiratory Exam Respiratory Exam: Clear to Auscultation Bilateral, NORMAL BREATHING PATTERN - Cardiovascular Exam Cardiovascular Exam: REGULAR RHYTHM, RRR, +S1, +S2 - GI/Abdominal Exam GI & Abdominal Exam: Normal Bowel Sounds, Soft. absent: Tenderness - Extremities Exam Extremities exam: Positive for: full ROM, normal inspection. Negative for: pedal edema - Neurological Exam Neurological exam: Alert, CN II-XII Intact, Oriented x3 - Psychiatric Exam Psychiatric exam: Normal Affect, Normal Mood - Skin Skin Exam: Dry, Intact, Normal Color Results - Vital Signs Recent Vital Signs: Last Vital Signs Temp 97.7 F 09/04/18 08:15 Pulse 66 09/04/18 08:15 Resp 18 09/04/18 08:15 BP 104/66 09/04/18 08:15 Pulse Ox 98 09/04/18 08:15 - Labs Result Diagrams: 09/04/18 05:25 09/04/18 05:25 Labs: Laboratory Results - last 24 hr 09/03/18 09/03/18 09/03/18 14:30 14:30 22:45 WBC 4.2 L RBC 4.71 Hgb 13.0 Hct 40.4 MCV 85.7 MCH 27.6 MCHC 32.2 L RDW 15.2 H Plt Count 168 MPV 9.0 Neut % (Auto) 56.5 Lymph % (Auto) 32.5 [place] % (Auto) 8.4 Eos % (Auto) 1.9 Baso % (Auto) 0.7 Neut # (Auto) 2.4 Lymph # (Auto) 1.4 [place] # (Auto) 0.4 Eos # (Auto) 0.1 Baso # (Auto) 0.0 Sodium 141 Potassium 4.3 Chloride 99 Carbon Dioxide 32 H Anion Gap 14 BUN 14 Creatinine 0.8 Est GFR ( Amer) > 60 Est GFR (Non-Af Amer) > 60 Random Glucose 72 Calcium 9.3 Total Bilirubin 0.4 AST 31 ALT 25 Alkaline Phosphatase 71 Troponin I < 0.0120 < 0.0120 Total Protein 7.8 Albumin 4.1 Globulin 3.7 Albumin/Globulin Ratio 1.1 Triglycerides Cholesterol LDL Cholesterol Direct HDL Cholesterol Thyroxine (T4) TSH 3rd Generation 09/04/18 09/04/18 05:25 05:25 WBC 4.4 L RBC 4.57 Hgb 12.5 Hct 38.9 MCV 85.0 MCH 27.4 MCHC 32.3 L RDW 14.7 H Plt Count 148 MPV Neut % (Auto) Lymph % (Auto) [place] % (Auto) Eos % (Auto) Baso % (Auto) Neut # (Auto) Lymph # (Auto) [place] # (Auto) Eos # (Auto) Baso # (Auto) Sodium 141 Potassium 4.0 Chloride 102 Carbon Dioxide 28 Anion Gap 15 BUN 20 H Creatinine 0.8 Est GFR ( Amer) > 60 Est GFR (Non-Af Amer) > 60 Random Glucose 85 Calcium 9.3 Total Bilirubin 0.4 AST 25 ALT 24 Alkaline Phosphatase 78 Troponin I < 0.0120 Total Protein 6.9 Albumin 3.6 Globulin 3.3 Albumin/Globulin Ratio 1.1 Triglycerides 57 D Cholesterol 132 LDL Cholesterol Direct < 30 HDL Cholesterol 71 H Thyroxine (T4) 5.59 TSH 3rd Generation 0.40 L Assessment & Plan - Assessment and Plan (Free Text) Assessment: Chest pain with ACS rule out Hypertension Plan: Chest pain with ACS rule out Hypertension EKG 09/03: Normal sinus rhythm with HR: 62 CXR 09/03: no effusions or consolidations apprecited ECHO 09/03: EF 60-65%, mild MR, trace TR, IVC mildly dilated and collapses >50% with inspiration BUN/Cr: 20/0.8 Trop x3: <.012 Chol: 132, TSH .4, T4 5.59 WBC 4.4 LDL: <30 HDL: 71 T Chol: 132 TSH: 0.40 T4: 5.59 Will obtain HgbA1c Patient was given nitro paste with resolution of symptoms. Patient for stress test tomorrow Medications: aspirin 81 mg daily - Date & Time Date: 09/04/18 Time: 10:38
--- NOTE | 2018-09-04 14:34 | CP.PCM.DIS ---
Provider - Provider Date of Admission: 09/03/18 13:55 Attending physician: Lucas Beltran MD Consults: 09/04/18 06:57 Cardiology Consult Routine Comment: Consulting Provider: Kei Figueroa Consulting Physician: Kei Figueroa Reason for Consult: chest pain Hospital Course - Lab Results Lab Results: Most Recent Lab Values WBC 4.4 K/uL (4.8-10.8) L 09/04/18 05:25 RBC 4.57 Mil/uL (3.80-5.20) 09/04/18 05:25 Hgb 12.5 g/dL (12.0-16.0) 09/04/18 05:25 Hct 38.9 % (34.0-47.0) 09/04/18 05:25 MCV 85.0 fl (81.0-99.0) 09/04/18 05:25 MCH 27.4 pg (27.0-31.0) 09/04/18 05:25 MCHC 32.3 g/dL (33.0-37.0) L 09/04/18 05:25 RDW 14.7 % (11.5-14.5) H 09/04/18 05:25 Plt Count 148 K/uL (130-400) 09/04/18 05:25 MPV 9.0 fl (7.2-11.7) 09/03/18 14:30 Neut % (Auto) 56.5 % (50.0-75.0) 09/03/18 14:30 Lymph % (Auto) 32.5 % (20.0-40.0) 09/03/18 14:30 [place] % (Auto) 8.4 % (0.0-10.0) 09/03/18 14:30 Eos % (Auto) 1.9 % (0.0-4.0) 09/03/18 14:30 Baso % (Auto) 0.7 % (0.0-2.0) 09/03/18 14:30 Neut # (Auto) 2.4 K/uL (1.8-7.0) 09/03/18 14:30 Lymph # (Auto) 1.4 K/uL (1.0-4.3) 09/03/18 14:30 [place] # (Auto) 0.4 K/uL (0.0-0.8) 09/03/18 14:30 Eos # (Auto) 0.1 K/uL (0.0-0.7) 09/03/18 14:30 Baso # (Auto) 0.0 K/uL (0.0-0.2) 09/03/18 14:30 Sodium 141 mmol/l (132-148) 09/04/18 05:25 Potassium 4.0 MMOL/L (3.6-5.0) 09/04/18 05:25 Chloride 102 mmol/L (98-107) 09/04/18 05:25 Carbon Dioxide 28 mmol/L (22-30) 09/04/18 05:25 Anion Gap 15 (10-20) 09/04/18 05:25 BUN 20 mg/dl (7-17) H 09/04/18 05:25 Creatinine 0.8 mg/dl (0.7-1.2) 09/04/18 05:25 Est GFR ( Amer) > 60 09/04/18 05:25 Est GFR (Non-Af Amer) > 60 09/04/18 05:25 Random Glucose 85 mg/dL (65-105) 09/04/18 05:25 Calcium 9.3 mg/dL (8.4-10.2) 09/04/18 05:25 Total Bilirubin 0.4 mg/dl (0.2-1.3) 09/04/18 05:25 AST 25 U/L (14-36) 09/04/18 05:25 ALT 24 U/L (9-52) 09/04/18 05:25 Alkaline Phosphatase 78 U/L (38-126) 09/04/18 05:25 Troponin I < 0.0120 ng/mL (0.00-0.120) 09/04/18 05:25 Total Protein 6.9 G/DL (6.3-8.2) 09/04/18 05:25 Albumin 3.6 g/dL (3.5-5.0) 09/04/18 05:25 Globulin 3.3 gm/dL (2.2-3.9) 09/04/18 05:25 Albumin/Globulin Ratio 1.1 (1.0-2.1) 09/04/18 05:25 Triglycerides 57 mg/DL (0-149) D 09/04/18 05:25 Cholesterol 132 mg/dL (0-199) 09/04/18 05:25 LDL Cholesterol Direct < 30 mg/dL (0-129) 09/04/18 05:25 HDL Cholesterol 71 MG/DL (30-70) H 09/04/18 05:25 Thyroxine (T4) 5.59 ug/dl (5.5-11.0) 09/04/18 05:25 TSH 3rd Generation 0.40 mIU/ML (0.46-4.68) L 09/04/18 05:25 Discharge Exam - Head Exam Head Exam: ATRAUMATIC, NORMAL INSPECTION, NORMOCEPHALIC Discharge Plan - Follow Up Plan Condition: FAIR Disposition: HOME/ ROUTINE Instructions: Chest Pain (DC) Referrals: Kei Figueroa MD [Staff Provider] - Amy Thurston MD [Family Provider] -
--- NOTE | 2018-09-04 21:45 | CP.PCM.PN ---
Subjective - Date & Time of Evaluation Date of Evaluation: 09/04/18 - Subjective Subjective: F/U CP no SOB, no C/P Objective - Vital Signs/Intake and Output Vital Signs (last 24 hours): Temp Pulse Resp BP Pulse Ox 98.4 F 52 L 20 122/72 99 09/04/18 20:26 09/04/18 20:26 09/04/18 20:26 09/04/18 20:26 09/04/18 20:26 - Medications Medications: Current Medications Aspirin (Aspirin Chewable) 81 mg PO DAILY JESSICA - Labs Labs: 09/04/18 05:25 09/04/18 05:25 - Constitutional Appears: No Acute Distress - Head Exam Head Exam: NORMAL INSPECTION - Eye Exam Eye Exam: PERRL - ENT Exam ENT Exam: Normal Exam - Neck Exam Neck Exam: Normal Inspection - Respiratory Exam Respiratory Exam: NORMAL BREATHING PATTERN - Cardiovascular Exam Cardiovascular Exam: REGULAR RHYTHM - GI/Abdominal Exam GI & Abdominal Exam: Soft, Normal Bowel Sounds - Extremities Exam Extremities Exam: Normal Inspection - Back Exam Back Exam: NORMAL INSPECTION - Neurological Exam Neurological Exam: Alert, Awake, Oriented x3. absent: Motor Sensory Deficit - Psychiatric Exam Psychiatric exam: Normal Mood - Skin Skin Exam: Warm Assessment and Plan (1) Chest pain Status: Acute (2) HTN (hypertension) Status: Chronic - Assessment and Plan (Free Text) Plan: Cardiology consult Dionicio handley STT in am
[2018-09-05 00:30] VITALS: RESP 18
--- NOTE | 2018-09-05 08:01 | CP.PCM.PN ---
Subjective - Date & Time of Evaluation Date of Evaluation: 09/05/18 Time of Evaluation: 07:59 - Subjective Subjective: Martín Durbin, PGY-1, Cardiology Progress Note for Dr. Figueroa Patient was seen and evaluated at bedside. Patient had no acute overnight events. Patient denied any symptoms today including chest pain, shortness of breath, nausea, diaphoresis, left arm pain, jaw pain, dizziness. Objective - Vital Signs/Intake and Output Vital Signs (last 24 hours): Temp Pulse Resp BP Pulse Ox 98.0 F 55 L 18 120/74 97 09/05/18 05:44 09/05/18 05:44 09/05/18 05:44 09/05/18 05:44 09/05/18 05:44 - Medications Medications: Current Medications Aspirin (Aspirin Chewable) 81 mg PO DAILY JESSICA - Labs Labs: 09/04/18 05:25 09/04/18 05:25 - Constitutional Appears: Well, Non-toxic, No Acute Distress - Head Exam Head Exam: ATRAUMATIC, NORMAL INSPECTION, NORMOCEPHALIC - Eye Exam Eye Exam: EOMI, PERRL - ENT Exam ENT Exam: Mucous Membranes Moist - Respiratory Exam Respiratory Exam: Clear to Ausculation Bilateral, NORMAL BREATHING PATTERN - Cardiovascular Exam Cardiovascular Exam: REGULAR RHYTHM, RRR, +S1, +S2 - GI/Abdominal Exam GI & Abdominal Exam: Soft, Normal Bowel Sounds. absent: Tenderness - Extremities Exam Extremities Exam: Full ROM - Neurological Exam Neurological Exam: Alert, Awake, CN II-XII Intact, Oriented x3 - Skin Skin Exam: Dry, Intact, Normal Color Assessment and Plan - Assessment and Plan (Free Text) Assessment: Chest pain with ACS rule out Hypertension Plan: Chest pain with ACS rule out Hypertension EKG 09/03: Normal sinus rhythm with HR: 62 CXR 09/03: no effusions or consolidations apprecited ECHO 09/03: EF 60-65%, mild MR, trace TR, IVC mildly dilated and collapses >50% with inspiration Stress test 09/05: inconclusive stress test with chest pain and downsloping ST changes on II, III, aVF and minor ST depression on V4 and V6 which are non diagnostic but questionable for myocardial ischemia. Trop x3: <.012 LDL: <30 HDL: 71 T Chol: 132 TSH: 0.40 T4: 5.59 HgbA1c: 5.6 Patient was given nitro paste with resolution of symptoms. Stress was inconclusive. Patient will likely need outpatient follow up for further testing. Medications: aspirin 81 mg daily
[2018-09-05 08:03] VITALS: BP 121/77; PULSE 62; TEMP 97.4; O2SAT 95
--- NOTE | 2018-09-05 10:56 | CARD ---
APPROVED REPORT Date of service: 09/05/2018 Protocol: BASSEM Test Type: Treadmill Stress Test Attending Physician: Dr. Rich MCDONNELL Referring Physician: Dr. Rich DAMIAN Technologist: CHRIS LUZ Test Indications: CHEST PAIN RADIATING TO JAW Medications: ASPIRIN 81MG Medical History: CAD, HTN, COPD, RHEUMATIC FEVER. Target HR: 160 bpm Resting ECG: normal Resting Heart Rate: 88 bpm Resting Blood Pressure: 142/79mmHg submaximum (85%): 136 bpm TEST SUMMARY [id number]/79.0. [id number]/79.0. PRETESTHYPERV.00:[id number]/79.0. PRETESTWARM-UP02:[id number]/79.1. EXERCISESTAGE 103:[id number]/60.1. EXERCISESTAGE 203:[id number]/70.3. EXERCISESTAGE 300:[id number]/70.2. [id number]/60.0. POST EXERCISE Reason for Termination: Fatigue Target HR: NoMax HR: 114 bpm73% of Maximum Predicted HR: 160 bpm Exercise duration: 3 Stage06:14 min:secExercise capacity: 7.3METs Max Blood Pressure: 164/70mmHg Blood Pressure response to exercise: normal resting BP - appropriate response Heart Rate response to exercise: appropriate Chest Pain: Yesnon-limitingAngina index: 0 Arrhythmia: Nonone ST Change: YesDepression downslopingDeviation: 0 mm INTERPRETATION Stress test: Patient exercised in a Bassem protocole for a total of 6.14 minutes. Chest pain was reported during the exercises which reversed to no chest pain at rest. No medication was given for chest pain. There was evidence of downsloping st changes on II III AVF and minor st depression on V4 to V6. No arrhythmias was noticed. Final conclusions: 1- Inconclusive stress test with chest pain and downsloping st changes on II III AVF and minor st depression on V4 to V6 which are non diagnostic but questionable for myocardial ischemia. 2- Further studies recommended
--- NOTE | 2018-09-05 15:13 | CP.PCM.DIS ---
Provider - Provider Date of Admission: 09/03/18 13:55 Attending physician: Lucas Beltran MD Consults: 09/04/18 06:57 Cardiology Consult Routine Comment: Consulting Provider: Kei Fiugeroa Consulting Physician: Kei Figueroa Reason for Consult: chest pain Diagnosis - Discharge Diagnosis (1) Chest pain Status: Acute Priority: High (2) HTN (hypertension) Status: Chronic Priority: Medium Hospital Course - Lab Results Lab Results: Most Recent Lab Values WBC 4.4 K/uL (4.8-10.8) L 09/04/18 05:25 RBC 4.57 Mil/uL (3.80-5.20) 09/04/18 05:25 Hgb 12.5 g/dL (12.0-16.0) 09/04/18 05:25 Hct 38.9 % (34.0-47.0) 09/04/18 05:25 MCV 85.0 fl (81.0-99.0) 09/04/18 05:25 MCH 27.4 pg (27.0-31.0) 09/04/18 05:25 MCHC 32.3 g/dL (33.0-37.0) L 09/04/18 05:25 RDW 14.7 % (11.5-14.5) H 09/04/18 05:25 Plt Count 148 K/uL (130-400) 09/04/18 05:25 MPV 9.0 fl (7.2-11.7) 09/03/18 14:30 Neut % (Auto) 56.5 % (50.0-75.0) 09/03/18 14:30 Lymph % (Auto) 32.5 % (20.0-40.0) 09/03/18 14:30 [place] % (Auto) 8.4 % (0.0-10.0) 09/03/18 14:30 Eos % (Auto) 1.9 % (0.0-4.0) 09/03/18 14:30 Baso % (Auto) 0.7 % (0.0-2.0) 09/03/18 14:30 Neut # (Auto) 2.4 K/uL (1.8-7.0) 09/03/18 14:30 Lymph # (Auto) 1.4 K/uL (1.0-4.3) 09/03/18 14:30 [place] # (Auto) 0.4 K/uL (0.0-0.8) 09/03/18 14:30 Eos # (Auto) 0.1 K/uL (0.0-0.7) 09/03/18 14:30 Baso # (Auto) 0.0 K/uL (0.0-0.2) 09/03/18 14:30 Sodium 141 mmol/l (132-148) 09/04/18 05:25 Potassium 4.0 MMOL/L (3.6-5.0) 09/04/18 05:25 Chloride 102 mmol/L (98-107) 09/04/18 05:25 Carbon Dioxide 28 mmol/L (22-30) 09/04/18 05:25 Anion Gap 15 (10-20) 09/04/18 05:25 BUN 20 mg/dl (7-17) H 09/04/18 05:25 Creatinine 0.8 mg/dl (0.7-1.2) 09/04/18 05:25 Est GFR ( Amer) > 60 09/04/18 05:25 Est GFR (Non-Af Amer) > 60 09/04/18 05:25 Random Glucose 85 mg/dL (65-105) 09/04/18 05:25 Hemoglobin A1c 5.6 % (4.2-6.5) 09/04/18 11:50 Calcium 9.3 mg/dL (8.4-10.2) 09/04/18 05:25 Total Bilirubin 0.4 mg/dl (0.2-1.3) 09/04/18 05:25 AST 25 U/L (14-36) 09/04/18 05:25 ALT 24 U/L (9-52) 09/04/18 05:25 Alkaline Phosphatase 78 U/L (38-126) 09/04/18 05:25 Troponin I < 0.0120 ng/mL (0.00-0.120) 09/04/18 05:25 Total Protein 6.9 G/DL (6.3-8.2) 09/04/18 05:25 Albumin 3.6 g/dL (3.5-5.0) 09/04/18 05:25 Globulin 3.3 gm/dL (2.2-3.9) 09/04/18 05:25 Albumin/Globulin Ratio 1.1 (1.0-2.1) 09/04/18 05:25 Triglycerides 57 mg/DL (0-149) D 09/04/18 05:25 Cholesterol 132 mg/dL (0-199) 09/04/18 05:25 LDL Cholesterol Direct < 30 mg/dL (0-129) 09/04/18 05:25 HDL Cholesterol 71 MG/DL (30-70) H 09/04/18 05:25 Thyroxine (T4) 5.59 ug/dl (5.5-11.0) 09/04/18 05:25 TSH 3rd Generation 0.40 mIU/ML (0.46-4.68) L 09/04/18 05:25 - Hospital Course Hospital Course: Pt SIGNED AMA today 09/05/18, AND LEFT THE HOSPITAL WITHOUT BEEN SEEN BY ME. Discharge Exam - Head Exam Head Exam: ATRAUMATIC, NORMAL INSPECTION, NORMOCEPHALIC Discharge Plan - Follow Up Plan Condition: FAIR Disposition: AGAINST MEDICAL ADVICE Instructions: Chest Pain (DC) Additional Instructions: follow up with pmd in 1 week Referrals: Kei Figueroa MD [Staff Provider] - Amy Thurston MD [Family Provider] -
== END 2018-09-05 11:58 | disposition left against medical advice (07) ==
LOC: H.ER 13:09 → H.ERHOLD 13:55 → H.TEL 18:05
PROVIDERS: ADMIT Internal Medicine Pulmonary Disease; ATTEND Internal Medicine Pulmonary Disease
DX: R07.89 Other chest pain (principal); I10 Essential (primary) hypertension; J44.9 Chronic obstructive pulmonary disease, unspecified; I25.10 Atherosclerotic heart disease of native coronary artery without angina pectoris
CPT/HCPCS: 36415; 71046; 80053; 80061; 83036; 84436; 84443; 84484; 85025; 85027; 93005; 93017; 93306; 99285; G0378; J1200